=== PATIENT | female | born 1935 | race Caucasian/White ===

== ENCOUNTER 2017-06-04 18:57 | Inpatient (IN) | payer MEDICARE, MEDICAID ==
[2017-06-04] MEDS ORDERED: Nitroglycerin 2% 15 INCH/30 GM TUBE TOP STA (20:36)
[2017-06-04] MEDS ORDERED: Nitroglycerin 2% Ointment Foilpak UD TOP STA (20:38)
--- NOTE | 2017-06-04 20:54 | ED PDOC ---
HPI: SOB/CHF/COPD Time Seen by Provider: 06/04/17 19:19 Chief Complaint (Nursing): Palpitations Chief Complaint (Provider): Shortness of Breath History Per: Patient History/Exam Limitations: no limitations Onset/Duration Of Symptoms: Days (1 day ago) Current Symptoms Are (Timing): Still Present Additional Complaint(s): 81 y/o [place] female with a history of CHF, A-Fib, asthma, and dyslipidemia, brought in by EMS, presents to the ED complaining of shortness of breath, onset of 1 day. She reports of having orthopnea, dyspnea on exertion, as well as paroxysmal nocturnal dyspnea. She also noted that she has been compliance with her Lasix medication. She denies the use of any cigarettes or alcohol. Past Medical History Vital Signs: Last Vital Signs Temp 96.2 F L 06/05/17 00:19 Pulse 85 06/05/17 00:19 Resp 20 06/05/17 02:48 BP 124/79 06/05/17 00:19 Pulse Ox 95 06/05/17 00:19 - Medical History PMH: Anxiety, Arthritis, Atrial Fibrillation, CHF, COPD, Depression, Diabetes, Fractures (Left Hip displacement), HTN, Hypercholesterolemia Other PMH: Dyslipidemia, Pulmonary Hypertension, Hypothyroid - Surgical History Surgical History: Appendectomy - Family History Family History: States: Unknown Family Hx - Living Arrangements Living Arrangements: Alone - Social History Current smoker - smoking cessation education provided: No Alcohol: None Drugs: Denies - Home Medications Home Medications: Ambulatory Orders Medication Instructions Recorded Albuterol HFA [Ventolin HFA 90 2 in INH Q6 PRN 06/04/17 mcg/actuation (8 g)] Aspirin [Ecotrin] 81 mg PO DAILY 06/04/17 Atorvastatin [Lipitor] 10 mg PO DAILY 06/04/17 Docusate [Colace] 200 mg PO HS 06/04/17 Donepezil HCl [Aricept Odt] 5 mg PO DAILY 06/04/17 Esomeprazole Magnesium [Nexium] 40 mg PO DAILY 06/04/17 Fluticasone/Salmeterol 250/50 1 inh INH Q12 06/04/17 [Advair Diskus 250/50] Furosemide [Lasix] 40 mg PO DAILY 06/04/17 Levothyroxine [Synthroid] 100 mcg PO DAILY 06/04/17 Lipase/Protease/Amylase [Zenpep Dr 2 cap PO BID 06/04/17 3,000 Units Capsule] Losartan/Hydrochlorothiazide 1 tab PO DAILY 06/04/17 [Losartan-Hctz 50-12.5 mg Tab] Magnesium Oxide [Magox 400] 400 % PO DAILY 06/04/17 Meloxicam [Mobic] 7.5 mg PO DAILY 06/04/17 Metoprolol Succinate [Toprol XL] 25 mg PO DAILY 06/04/17 SITagliptin [Januvia] 50 mg PO DAILY 06/04/17 Sildenafil [Revatio] 20 mg PO TID 06/04/17 Spironolactone [Aldactone] 25 mg PO DAILY 06/04/17 Tolterodine [Detrol LA] 4 mg PO DAILY 06/04/17 - Allergies Allergies/Adverse Reactions: Allergies Allergy/AdvReac Type Severity Reaction Status Date / Time No Known Allergies Allergy Verified 06/04/17 19:02 Review of Systems ROS Statement: Except As Marked, All Systems Reviewed And Found Negative Cardiovascular: Positive for: Orthopnea, Paroxysmal Noc. 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 Negative for: Tenderness Back: Positive for: Normal Inspection Extremity: Positive for: Normal ROM, Other (no leg edema). Negative for: Pedal Edema, Deformity Neurologic/Psych: Positive for: Alert, Oriented. Negative for: Motor/Sensory Deficits - Laboratory Results Result Diagrams: 06/04/17 21:09 06/04/17 21:09 - ECG O2 Sat by Pulse Oximetry: 100 (RA) Pulse Ox Interpretation: Normal Medical Decision Making Medical Decision Making: Time: --19:55 Impression: --81 y/o female with an acute exacerbation of CHF Plan: --ECG --Labs --Troponin I --PTT --PT --Chest x-ray --Lasix 40mg IV --Nitroglycerin 1 ea TOP --Blood Culture --Heplock Insertion Reassess --20:49 Patient to be admitted to Dr. Moran for observation. Scribe Attestation: Documented by Jim Martino acting as a scribe for Justin Molina MD. Disposition - Clinical Impression Clinical Impression: Acute exacerbation of CHF (congestive heart failure) - Patient ED Disposition Is Patient to be Admitted: Yes Discussed With DrYenny: Richard Moran Doctor Will See Patient In The: Hospital - Disposition Disposition Time: 20:49 Condition: FAIR
[2017-06-04 21:18] LABS: BASO % 0.3 % (0.0-2.0); EOS # 0.1 K/uL (0.0-0.7); EOS % 1.2 % (0.0-4.0); HEMATOCRIT 45.8 % (34.0-47.0); LYMPH # 3.1 K/uL (1.0-4.3); MEAN CELL VOLUME 90.8 fl (81.0-99.0); MEAN CORPUSCULAR HEMOGLOBIN 29.1 pg (27.0-31.0); MEAN PLATELET VOLUME 9.9 fl (7.2-11.7); MONO # 0.8 K/uL (0.0-0.8); NEUT # 2.6 K/uL (1.8-7.0); NEUT % 39.5 % (50.0-75.0); NRBC % 0.3 % (0.0-0.0); RED CELL DISTRIBUTION WIDTH 13.9 % (11.5-14.5); WHITE BLOOD COUNT 6.5 K/uL (4.8-10.8)
[2017-06-04] MEDS ORDERED: Nitroglycerin 2% Ointment Foilpak UD TOP ONE (21:24)
[2017-06-04 21:26] LABS: CALCIUM 8.8 mg/dL (8.4-10.2); CARBON DIOXIDE 32 mmol/L (22-30); CHLORIDE 97 mmol/L (98-107); GFR AFRICAN-AMERICAN > 60; SODIUM 140 mmol/l (132-148)
[2017-06-04 21:33] LABS: ALB/GLOB RATIO 1.3 (1.0-2.1); ALKALINE PHOSPHATASE 75 U/L (38-126); ALT/SGPT 34 U/L (9-52); AST/SGOT 67 U/L (14-36); BILIRUBIN,TOTAL 1.1 mg/dl (0.2-1.3); BLOOD UREA NITROGEN 18 mg/dl (7-17); GLUCOSE,RANDOM 102 mg/dL (65-105); POTASSIUM 4.6 MMOL/L (3.6-5.0); TOTAL PROTEIN 7.5 G/DL (6.3-8.2)
[2017-06-04 21:54] LABS: PARTIAL THROMBOPLASTIN TIME 33.1 Seconds (25.6-37.1)
[2017-06-05] MEDS ORDERED: Albuterol HFA 90 mcg/actuation (8 g) INH PRN ×2 (02:40→07:15)
[2017-06-05] MEDS: Fluticasone-Salmeterol 250-50mcg Diskus INH SCH ×2 (08:58→22:01)
[2017-06-05] MEDS: HCTZ/Losartan 12.5/50 Tab PO SCH (08:59)
[2017-06-05] MEDS ORDERED: AMYLASE PO SCH (09:00)
[2017-06-05] MEDS ORDERED: LIPASE PO SCH (09:00)
[2017-06-05] MEDS: Enoxaparin 40 mg Syringe SC SCH (09:00)
[2017-06-05] MEDS ORDERED: Metoprolol Succinate 25 mg XL Tab PO SCH (09:00)
[2017-06-05] MEDS ORDERED: PROTEASE PO SCH (09:00)
[2017-06-05] MEDS: Amylase/Lipase/Protease 5,000 Units ECC PO SCH ×2 (09:01→16:55)
[2017-06-05] MEDS: Pantoprazole 40 mg EC Tab PO SCH (09:02)
[2017-06-05] MEDS: Levothyroxine 100 MCG TAB PO SCH (09:02)
[2017-06-05] MEDS: Magnesium Oxide 400 mg Tab UD PO SCH (16:53)
[2017-06-05] MEDS: DONEPEZIL HCL 5 MG PO SCH (16:53)
--- NOTE | 2017-06-05 18:10 | CP.PCM.CON ---
History of Present Illness - History of Present Illness History of Present Illness: Consultation for CHF exacerbation / tachycardia HPI: Dyana is a 81-year-old female with past medical history significant for diastolic CHF pulmonary hypertension nonischemic cardiomyopathy who was recently in [facility] over the weekend for a day for a bout of acute CHF exacerbation she was last hospitalized about a month ago with severe lower extremity edema fluid overload and heart failure with worsening sicca symptoms most likely attributable secondary to dietary noncompliance. OR she was subsequently discharged on Monday and [facility] when she noted she had a bout of tachycardia with severe shortness of breath she was getting dyspneic on exertion with minimal activity and therefore came back to the emergency room she was noted to have elevated BNP and was given IV Lasix with mild improvement in her symptoms according to mom she has been compliant with her medications and has been maintained on sildenafil therapy for pulmonary hypertension with significant improvement in her symptoms from her baseline at baseline she is in much functional class II/III dyspnea. Review of Systems - Review of Systems Systems not reviewed;Unavailable: Acuity of Condition - Constitutional Constitutional: As Per HPI - EENT Eyes: As Per HPI Ears: As Per HPI Nose/Mouth/Throat: As Per HPI - Breasts Breasts: As Per HPI - Cardiovascular Cardiovascular: As Per HPI, Chest Pain, Dyspnea - Respiratory Respiratory: As Per HPI - Gastrointestinal Gastrointestinal: As Per HPI - Genitourinary Genitourinary: As Per HPI - Reproductive: Female Reproductive:Female: As Per HPI - Musculoskeletal Musculoskeletal: As Per HPI - Integumentary Integumentary: As Per HPI - Neurological Neurological: As Per HPI - Psychiatric Psychiatric: As Per HPI - Endocrine Endocrine: As Per HPI - Hematologic/Lymphatic Hematologic: As Per HPI Past Patient History - Infectious Disease Hx of Infectious Diseases: None - Past Medical History & Family History Past Medical History?: Yes - Past Social History Alcohol: None Drugs: Denies - CARDIAC Hx Atrial Fibrillation: Yes Hx Congestive Heart Failure: Yes Hx Hypercholesterolemia: Yes Hx Hypertension: Yes - PULMONARY Hx Chronic Obstructive Pulmonary Disease (COPD): Yes - NEUROLOGICAL Hx Neurological Disorder: Yes HX Cerebrovascular Accident: Yes - HEENT Hx HEENT Problems: Yes Hx Blind: Yes (Right eye) Hx Glaucoma: Yes Other/Comment: Hx DEERING with hearing aids - RENAL Hx Chronic Kidney Disease: No - ENDOCRINE/METABOLIC Hx Endocrine Disorders: Yes Hx Diabetes Mellitus Type 2: Yes - HEMATOLOGICAL/ONCOLOGICAL Hx Blood Disorders: No Hx AIDS: No Hx Human Immunodeficiency Virus (HIV): No - INTEGUMENTARY Hx Dermatological Problems: No - MUSCULOSKELETAL/RHEUMATOLOGICAL Hx Arthritis: Yes Hx Fractures: Yes (Left Hip displacement) - GASTROINTESTINAL Hx Gastrointestinal Disorders: Yes Hx Gastroesophageal Reflux: Yes (Peptic Ulcer disease) - GENITOURINARY/GYNECOLOGICAL Hx Genitourinary Disorders: Yes Hx Incontinence: Yes - PSYCHIATRIC Hx Anxiety: Yes Hx Depression: Yes - SURGICAL HISTORY Hx Appendectomy: Yes - ANESTHESIA Hx Anesthesia: Yes Hx Anesthesia Reactions: No Hx Malignant Hyperthermia: No Meds Allergies/Adverse Reactions: Allergies Allergy/AdvReac Type Severity Reaction Status Date / Time No Known Allergies Allergy Verified 06/04/17 19:02 - Medications Medications: Current Medications Albuterol (Ventolin Hfa 90 Mcg/Actuation (8 G)) 2 puff INH Q6 PRN PRN Reason: sob Amylase (Pancrease 96910 U-5000 [id number] U) 10,000 unit PO BIDWM [facility] Last Admin: 06/05/17 16:55 Dose: 10,000 unit Aspirin (Ecotrin) 81 mg PO DAILY [facility] Last Admin: 06/05/17 08:59 Dose: 81 mg Atorvastatin Calcium (Lipitor) 10 mg PO DAILY [facility] Last Admin: 06/05/17 09:00 Dose: 10 mg Docusate Sodium (Colace) 200 mg PO [facility] Donepezil HCl (Aricept Odt) 5 mg PO DAILY [facility] Last Admin: 06/05/17 16:53 Dose: Not Given Enoxaparin Sodium (Lovenox) 40 mg SC DAILY [facility] PRN Reason: Protocol Last Admin: 06/05/17 09:00 Dose: 40 mg Famotidine (Pepcid) 20 mg IVP DAILY [facility] Last Admin: 06/05/17 09:02 Dose: Not Given Furosemide (Lasix) 40 mg IV DAILY [facility] HCTZ/Losartan Potassium (Hyzaar 12.5 Mg-50 Mg) 1 tab PO DAILY [facility] Last Admin: 06/05/17 08:59 Dose: 1 tab Levothyroxine Sodium (Synthroid) 100 mcg PO DAILY@0630 [facility] Last Admin: 06/05/17 09:02 Dose: 100 mcg Magnesium Oxide (Mag-Ox) 400 mg PO DAILY [facility] Last Admin: 06/05/17 16:53 Dose: Not Given Metoprolol Succinate (Toprol Xl) 25 mg PO DAILY [facility] Last Admin: 06/05/17 09:02 Dose: 25 mg Naproxen (Naprosyn Tab) 250 mg PO BID [facility] Last Admin: 06/05/17 16:55 Dose: 250 mg Ondansetron HCl (Zofran Inj) 4 mg IVP Q6 PRN PRN Reason: Nausea/Vomiting Last Admin: 06/05/17 09:12 Dose: 4 mg Pantoprazole Sodium (Protonix Ec Tab) 40 mg PO DAILY [facility] Last Admin: 06/05/17 09:02 Dose: 40 mg Fluticasone/Salmeterol (Advair Diskus 250/50) 1 puff INH Q12 [facility] Last Admin: 06/05/17 08:58 Dose: 1 puff Sitagliptin Phosphate (Januvia) 50 mg PO DAILY [facility] Last Admin: 06/05/17 08:59 Dose: 50 mg Spironolactone (Aldactone) 25 mg PO DAILY [facility] Last Admin: 06/05/17 08:58 Dose: 25 mg Tolterodine Tartrate (Detrol) 2 mg PO BID [facility] Last Admin: 06/05/17 16:55 Dose: 2 mg Physical Exam - Constitutional Appears: Well - Head Exam Head Exam: ATRAUMATIC, NORMAL INSPECTION, NORMOCEPHALIC - Eye Exam Eye Exam: EOMI, Normal appearance, PERRL Pupil Exam: NORMAL ACCOMODATION, PERRL - ENT Exam ENT Exam: Mucous Membranes Moist, Normal Exam - Neck Exam Neck exam: Positive for: Normal Inspection - Respiratory Exam Respiratory Exam: Clear to Auscultation Bilateral, Rales, NORMAL BREATHING PATTERN - Cardiovascular Exam Cardiovascular Exam: Irregular Rhythm, RRR, +S1, +S2, Systolic Murmur - GI/Abdominal Exam GI & Abdominal Exam: Normal Bowel Sounds, Soft. absent: Tenderness - Extremities Exam Extremities exam: Positive for: normal inspection - Back Exam Back exam: NORMAL INSPECTION - Neurological Exam Neurological exam: Alert, CN II-XII Intact, Normal Gait, Oriented x3, Reflexes Normal - Psychiatric Exam Psychiatric exam: Normal Affect, Normal Mood - Skin Skin Exam: Dry, Intact, Normal Color, Warm Results - Vital Signs Recent Vital Signs: Last Vital Signs Temp 98.3 F 06/05/17 16:23 Pulse 107 H 06/05/17 16:23 Resp 18 12/18/17 16:23 BP 108/71 06/05/17 16:23 Pulse Ox 96 06/05/17 16:23 - Labs Result Diagrams: 06/06/17 04:25 06/06/17 04:25 Labs: Laboratory Results - last 24 hr 06/04/17 06/04/17 06/04/17 19:22 21:09 21:09 WBC 6.5 RBC 5.05 Hgb 14.7 Hct 45.8 MCV 90.8 MCH 29.1 MCHC 32.0 L RDW 13.9 Plt Count 166 MPV 9.9 Neut % (Auto) 39.5 L Lymph % (Auto) 47.0 H [place] % (Auto) 12.0 H Eos % (Auto) 1.2 Baso % (Auto) 0.3 Neut # 2.6 Lymph # 3.1 [place] # 0.8 Eos # 0.1 Baso # 0.0 PT INR APTT Sodium 140 Potassium 4.6 Chloride 97 L Carbon Dioxide 32 H Anion Gap 16 BUN 18 H Creatinine 0.7 Est GFR ( Amer) > 60 Est GFR (Non-Af Amer) > 60 POC Glucose (mg/dL) 122 H Random Glucose 102 Calcium 8.8 Total Bilirubin 1.1 AST 67 H ALT 34 Alkaline Phosphatase 75 Troponin I 0.0220 NT-Pro-B Natriuret Pep 2270 H Total Protein 7.5 Albumin 4.3 Globulin 3.3 Albumin/Globulin Ratio 1.3 06/04/17 06/05/17 06/05/17 21:09 00:36 04:20 WBC RBC Hgb Hct MCV MCH MCHC RDW Plt Count MPV Neut % (Auto) Lymph % (Auto) [place] % (Auto) Eos % (Auto) Baso % (Auto) Neut # Lymph # [place] # Eos # Baso # PT 12.7 INR 1.1 APTT 33.1 Sodium Potassium Chloride Carbon Dioxide Anion Gap BUN Creatinine Est GFR ( Amer) Est GFR (Non-Af Amer) POC Glucose (mg/dL) 165 H Random Glucose Calcium Total Bilirubin AST ALT Alkaline Phosphatase Troponin I 0.0170 NT-Pro-B Natriuret Pep Total Protein Albumin Globulin Albumin/Globulin Ratio 06/05/17 06/05/17 06/05/17 05:37 10:53 12:39 WBC RBC Hgb Hct MCV MCH MCHC RDW Plt Count MPV Neut % (Auto) Lymph % (Auto) [place] % (Auto) Eos % (Auto) Baso % (Auto) Neut # Lymph # [place] # Eos # Baso # PT INR APTT Sodium Potassium Chloride Carbon Dioxide Anion Gap BUN Creatinine Est GFR ( Amer) Est GFR (Non-Af Amer) POC Glucose (mg/dL) 118 H 137 H Random Glucose Calcium Total Bilirubin AST ALT Alkaline Phosphatase Troponin I 0.0230 NT-Pro-B Natriuret Pep Total Protein Albumin Globulin Albumin/Globulin Ratio Assessment & Plan (1) Afib Assessment and Plan: chg metoprolol to 25mg po bid will consider adding digoxin based on HR response and BP Status: Ruled-out (2) Pulmonary HTN Assessment and Plan: cont with sildenafil therapy Status: Acute (3) Pedal edema Status: Acute (4) Acute exacerbation of CHF (congestive heart failure) Assessment and Plan: cont with lasix 40mg IV bid add digoxin Status: Acute
[2017-06-06 05:44] LABS: HEMATOCRIT 43.4 % (34.0-47.0); MEAN CELL VOLUME 90.7 fl (81.0-99.0); MEAN CORPUSCULAR HEMOGLOBIN 28.9 pg (27.0-31.0); MEAN CORPUSCULAR HGB CONC 31.9 g/dL (33.0-37.0); RED CELL DISTRIBUTION WIDTH 13.7 % (11.5-14.5); WHITE BLOOD COUNT 6.4 K/uL (4.8-10.8)
[2017-06-06] MEDS: Levothyroxine 100 MCG TAB PO SCH (05:50)
[2017-06-06 06:09] LABS: ALB/GLOB RATIO 1.5 (1.0-2.1); BILIRUBIN,TOTAL 0.6 mg/dl (0.2-1.3); CALCIUM 8.6 mg/dL (8.4-10.2); POTASSIUM 2.8 MMOL/L (3.6-5.0); TOTAL PROTEIN 6.1 G/DL (6.3-8.2)
[2017-06-06] MEDS ORDERED: Potassium Chloride 20 mEq ER Tab PO ONE (06:54)
[2017-06-06] MEDS: Fluticasone-Salmeterol 250-50mcg Diskus INH SCH ×2 (08:34→21:57)
[2017-06-06] MEDS: DONEPEZIL HCL 5 MG PO SCH (08:35)
[2017-06-06] MEDS: Amylase/Lipase/Protease 5,000 Units ECC PO SCH ×2 (08:35→16:02)
[2017-06-06] MEDS: Potassium CL 10 MEQ/50 ML 50 ML IVPB SCH ×2 (08:36→12:19)
[2017-06-06] MEDS: Pantoprazole 40 mg EC Tab PO SCH (08:36)
[2017-06-06] MEDS: HCTZ/Losartan 12.5/50 Tab PO SCH (08:36)
[2017-06-06] MEDS: Enoxaparin 40 mg Syringe SC SCH (08:38)
[2017-06-06] MEDS: Magnesium Oxide 400 mg Tab UD PO SCH (08:38)
--- NOTE | 2017-06-06 08:44 | HP ---
CHIEF COMPLAINT: Palpitation and shortness of breath. HISTORY OF PRESENT ILLNESS: This is a 81-year-old female, known case of congestive heart failure, COPD, morbid obesity, atrial fibrillation, arthritis, anxiety, diabetes, hypertension, elevated cholesterol, who was having palpitation and shortness of breath, so the patient was brought to the emergency room and was admitted for further management. PAST MEDICAL HISTORY: Significant for hypertension, elevated cholesterol, CHF, atrial fibrillation, COPD, diabetes, depression, anxiety, arthritis and morbid obesity. PAST SURGICAL HISTORY: Remarkable for appendix removed. PERSONAL HISTORY: The patient is currently nonsmoker, nondrinker. No substance abuse. MEDICATIONS: The patient is on multiple medications, which is as per reconciliation sheet, which was reviewed and ordered. ALLERGIES: THE PATIENT IS NOT ALLERGIC TO ANY MEDICATION. FAMILY HISTORY: Noncontributory. REVIEW OF SYSTEMS: Positive for palpitation and shortness of breath. Review of systems otherwise is negative for headache, dizziness, syncope, loss of consciousness, chest pain, nausea, vomiting, diarrhea, constipation, any new joint or extremity pain. Review of systems of all other organ system is unremarkable except generalized malaise and weakness and fatigue. PHYSICAL EXAMINATION: GENERAL: Well-built, well-nourished morbidly obese 81-year-old female, in no acute distress, but chronically sick looking. VITAL SIGNS: Temperature 99.4, pulse 111, respirations 20, blood pressure 117/77. HEENT: Pupils reacting to light. No JVD. No thyromegaly. No lymphadenopathy. No nystagmus. Normocephalic, atraumatic skull. HEART: S1 and S2. Normal and regular. No significant murmur, gallop or rub is heard. LUNGS: Shows good bilateral air exchange. No rales or rhonchi. ABDOMEN: Soft, nontender. No organomegaly. No fluid. Bowel sounds are plus. EXTREMITIES: No edema. No calf swelling. No tenderness. No acute ischemia. CENTRAL NERVOUS SYSTEM: Essentially unchanged. DIAGNOSTIC DATA: Available diagnostic data reviewed. Telemetry monitoring does not reveal significant arrhythmias. WBC 6.5, hemoglobin 14.7, hematocrit 45.8, platelets 176. Sodium 140, potassium 4.6, chloride 97, bicarb 32, BUN 18, creatinine 0.7. SMA 12 is unremarkable. ProBNP level is 2270. Accu-Cheks are 165, 118 and 137. EKG does not reveal any acute ST-T changes. Chest x-ray consistent with congestive changes. ADMITTING IMPRESSION: Decompensated congestive heart failure, hypertension, elevated cholesterol, chronic obstructive pulmonary disease, arthritis, atrial fibrillation. PLAN: As ordered. Case and plan discussed with the patient. Richard Moran MD
--- NOTE | 2017-06-06 09:10 | CP.PCM.PN ---
Subjective - Date & Time of Evaluation Date of Evaluation: 06/06/17 Time of Evaluation: 08:00 - Subjective Subjective: Patient seen and examined wit attending bedside. Feeling better. denies SOB, chest pain, fever, nausea, vomiting. Stooling normal. reports less urination yesterday. Objective - Vital Signs/Intake and Output Vital Signs (last 24 hours): Temp Pulse Resp BP Pulse Ox 97.9 F 72 20 106/73 96 06/06/17 08:08 06/06/17 08:38 06/06/17 08:08 06/06/17 08:38 06/06/17 08:08 - Medications Medications: Current Medications Albuterol (Ventolin Hfa 90 Mcg/Actuation (8 G)) 2 puff INH Q6 PRN PRN Reason: sob Amylase (Pancrease 52090 U-5000 U-[id number] U) 10,000 unit PO BIDWM [facility] Last Admin: 06/06/17 08:35 Dose: 10,000 unit Aspirin (Ecotrin) 81 mg PO DAILY [facility] Last Admin: 06/06/17 08:38 Dose: 81 mg Atorvastatin Calcium (Lipitor) 10 mg PO DAILY [facility] Last Admin: 06/05/17 09:00 Dose: 10 mg Docusate Sodium (Colace) 200 mg PO HS [facility] Last Admin: 06/05/17 21:52 Dose: 200 mg Donepezil HCl (Aricept Odt) 5 mg PO DAILY [facility] Last Admin: 06/06/17 08:35 Dose: 5 mg Enoxaparin Sodium (Lovenox) 40 mg SC DAILY [facility] PRN Reason: Protocol Last Admin: 06/06/17 08:38 Dose: 40 mg Famotidine (Pepcid) 20 mg IVP DAILY [facility] Last Admin: 06/06/17 08:41 Dose: 20 mg Furosemide (Lasix) 40 mg IV BID [facility] Last Admin: 06/05/17 19:22 Dose: Not Given HCTZ/Losartan Potassium (Hyzaar 12.5 Mg-50 Mg) 1 tab PO DAILY [facility] Last Admin: 06/06/17 08:36 Dose: 1 tab Potassium Chloride (Potassium Cl 10meq/50ml Sterile Water) 50 mls @ 50 mls/hr IVPB Q1 [facility] Stop: 06/06/17 10:59 Last Admin: 06/06/17 08:36 Dose: 50 mls/hr Levothyroxine Sodium (Synthroid) 100 mcg PO DAILY@0630 [facility] Last Admin: 06/06/17 05:50 Dose: 100 mcg Magnesium Oxide (Mag-Ox) 400 mg PO DAILY [facility] Last Admin: 06/06/17 08:38 Dose: 400 mg Metoprolol Tartrate (Lopressor) 25 mg PO Q12 [facility] Last Admin: 06/06/17 08:38 Dose: 25 mg Naproxen (Naprosyn Tab) 250 mg PO BID [facility] Last Admin: 06/06/17 08:36 Dose: 250 mg Ondansetron HCl (Zofran Inj) 4 mg IVP Q6 PRN PRN Reason: Nausea/Vomiting Last Admin: 06/05/17 09:12 Dose: 4 mg Pantoprazole Sodium (Protonix Ec Tab) 40 mg PO DAILY [facility] Last Admin: 06/06/17 08:36 Dose: 40 mg Fluticasone/Salmeterol (Advair Diskus 250/50) 1 puff INH Q12 [facility] Last Admin: 06/06/17 08:34 Dose: 1 puff Sitagliptin Phosphate (Januvia) 50 mg PO DAILY [facility] Last Admin: 06/06/17 08:35 Dose: 50 mg Spironolactone (Aldactone) 25 mg PO DAILY [facility] Last Admin: 06/06/17 08:35 Dose: 25 mg Tolterodine Tartrate (Detrol) 2 mg PO BID [facility] Last Admin: 06/06/17 08:35 Dose: 2 mg - Labs Labs: 06/06/17 04:25 06/06/17 04:25 PT 12.7 Seconds (9.8-13.1) 06/04/17 21:09 INR 1.1 (0.9-1.2) 06/04/17 21:09 APTT 33.1 Seconds (25.6-37.1) 06/04/17 21:09 - Constitutional Appears: Non-toxic, No Acute Distress - Head Exam Head Exam: ATRAUMATIC, NORMOCEPHALIC - Eye Exam Eye Exam: Normal appearance - Neck Exam Neck Exam: Full ROM - Respiratory Exam Respiratory Exam: Clear to Ausculation Bilateral. absent: Rales, Rhonchi, Wheezes - Cardiovascular Exam Cardiovascular Exam: REGULAR RHYTHM, +S1, +S2 - GI/Abdominal Exam GI & Abdominal Exam: Soft, Normal Bowel Sounds. absent: Tenderness - Extremities Exam Extremities Exam: Full ROM. absent: Pedal Edema - Neurological Exam Neurological Exam: Alert, Awake, Oriented x3 - Psychiatric Exam Psychiatric exam: Normal Affect - Skin Skin Exam: Intact Assessment and Plan - Assessment and Plan (Free Text) Plan: Assessment/Plan 81 yo, f, PMx/o CHF, COPD, morbid obesity, A fib, DM, HTN admitted for CHF exacerbation. 1) Diastolic CHF exacerbation -improving -cardiac consult appreciated 2) Hypokalemia secondary to lasix administration -hold lasix -aldactone -Kcl PO 60 mg -Kcl Iv 40 meq -f/u cmp tomorrow 3) A fib Shell Sorter consult appreciated:changed metoprolol 25 mog bid. will consider adding digoxin 4) COPD Duoneb 5) DM Continue januvia Accucheck ACHS 6) DVT Prophylaxis -Lovenox 40 mg sc daily
--- NOTE | 2017-06-06 10:16 | PQF GENQUE ---
This form is a permanent part of the medical record 06/06/17 Dr Walters, Please specify the underlying cause/ type of pulmonary hypertension in your progress notes. Admitted with SOB. Noted to have elevated BNP and given Lasix IV. Documentation of a history of Diastolic CHF, Pulmonary HTN, Non-ischemic Cardiomyopathy. Clarification of your documentation is requested to better reflect the severity of illness and intensity of treatment of your patient. Indicators present [] Specify: [] [] Specify: [] [] Specify: [] [] Specify: [] Location in the medical record that reflects the above clinical findings: [] Treatment Provided: [] PHYSICIAN'S RESPONSE Based on your medical judgment of the clinical indicators outlined above please clarify the following: [] Practitioner response [] If unable to determine, please check the box, sign and date. Present On Admission (POA) Indicator: [] Present at the time of admission [] Not present at the time of admission [] Clinically Undetermined In responding to this query, please exercise your independent professional judgment. The fact that a question is asked does not imply that any particular answer is desired or expected. Thank you for your clarification on this documentation. If you have any questions please call:extension [phone] * Thank you, Kathy Jose RN CDMP MTDD
--- NOTE | 2017-06-06 14:19 | IP.NPCORE ---
Heart Failure Core Measure - Heart Failure Ejection Fraction: 40 % or Greater
[2017-06-06] MEDS ORDERED: Potassium Chloride 20 mEq/15 ml LIQ UD PO ONE (15:00)
--- NOTE | 2017-06-07 00:35 | CP.PCM.PN ---
Subjective - Date & Time of Evaluation Date of Evaluation: 06/06/17 Time of Evaluation: 09:30 - Subjective Subjective: SOB and LE edema improving still tachycardic Objective - Vital Signs/Intake and Output Vital Signs (last 24 hours): Temp Pulse Resp BP Pulse Ox 98.1 F 95 H 18 95/68 L 94 L 06/06/17 20:01 06/06/17 21:54 06/06/17 20:01 06/06/17 21:54 06/06/17 20:01 Intake and Output: 06/06/17 06/07/17 18:59 06:59 Intake Total 600 Balance 600 - Medications Medications: Current Medications Albuterol (Ventolin Hfa 90 Mcg/Actuation (8 G)) 2 puff INH Q6 PRN PRN Reason: sob Amylase (Pancrease 66140 U-5000 U-93783 U) 10,000 unit PO BIDWM [facility] Last Admin: 06/06/17 16:02 Dose: 10,000 unit Aspirin (Ecotrin) 81 mg PO DAILY [facility] Last Admin: 06/06/17 08:38 Dose: 81 mg Atorvastatin Calcium (Lipitor) 10 mg PO DAILY [facility] Last Admin: 06/06/17 12:16 Dose: 10 mg Docusate Sodium (Colace) 200 mg PO HS [facility] Last Admin: 06/06/17 21:51 Dose: 200 mg Donepezil HCl (Aricept Odt) 5 mg PO DAILY [facility] Last Admin: 06/06/17 08:35 Dose: 5 mg Enoxaparin Sodium (Lovenox) 40 mg SC DAILY [facility] PRN Reason: Protocol Last Admin: 06/06/17 08:38 Dose: 40 mg Famotidine (Pepcid) 20 mg IVP DAILY [facility] Last Admin: 06/06/17 08:41 Dose: 20 mg Furosemide (Lasix) 40 mg IV BID [facility] Last Admin: 06/06/17 15:59 Dose: 40 mg HCTZ/Losartan Potassium (Hyzaar 12.5 Mg-50 Mg) 1 tab PO DAILY [facility] Last Admin: 06/06/17 08:36 Dose: 1 tab Levothyroxine Sodium (Synthroid) 100 mcg PO DAILY@0630 [facility] Last Admin: 06/06/17 05:50 Dose: 100 mcg Magnesium Oxide (Mag-Ox) 400 mg PO DAILY [facility] Last Admin: 06/06/17 08:38 Dose: 400 mg Metoprolol Tartrate (Lopressor) 25 mg PO Q12 [facility] Last Admin: 06/06/17 21:54 Dose: Not Given Naproxen (Naprosyn Tab) 250 mg PO BID [facility] Last Admin: 06/06/17 16:02 Dose: 250 mg Ondansetron HCl (Zofran Inj) 4 mg IVP Q6 PRN PRN Reason: Nausea/Vomiting Last Admin: 06/05/17 09:12 Dose: 4 mg Pantoprazole Sodium (Protonix Ec Tab) 40 mg PO DAILY [facility] Last Admin: 06/06/17 08:36 Dose: 40 mg Potassium Chloride (K-Dur 20 Meq Er Tab) 20 meq PO DAILY [facility] Rivastigmine (Exelon 9.5 Mg/24 Hr Patch) 1 patch TD DAILY [facility] Last Admin: 06/06/17 15:58 Dose: 1 patch Fluticasone/Salmeterol (Advair Diskus 250/50) 1 puff INH Q12 [facility] Last Admin: 06/06/17 21:57 Dose: 1 puff Sitagliptin Phosphate (Januvia) 50 mg PO DAILY [facility] Last Admin: 06/06/17 08:35 Dose: 50 mg Tolterodine Tartrate (Detrol) 2 mg PO BID [facility] Last Admin: 06/06/17 16:06 Dose: Not Given - Labs Labs: 06/06/17 04:25 06/06/17 04:25 PT 12.7 Seconds (9.8-13.1) 06/04/17 21:09 INR 1.1 (0.9-1.2) 06/04/17 21:09 APTT 33.1 Seconds (25.6-37.1) 06/04/17 21:09 - Constitutional Appears: Well - Head Exam Head Exam: ATRAUMATIC, NORMAL INSPECTION, NORMOCEPHALIC - Eye Exam Eye Exam: EOMI, PERRL - ENT Exam ENT Exam: Mucous Membranes Moist - Neck Exam Neck Exam: Full ROM, Normal Inspection - Respiratory Exam Respiratory Exam: Decreased Breath Sounds, Rales - Cardiovascular Exam Cardiovascular Exam: Irregular Rhythm, RRR, +S1, +S2, Murmur - GI/Abdominal Exam GI & Abdominal Exam: Soft, Normal Bowel Sounds - Extremities Exam Extremities Exam: Pedal Edema - Back Exam Back Exam: NORMAL INSPECTION - Neurological Exam Neurological Exam: Alert, Awake, CN II-XII Intact, Oriented x3 - Psychiatric Exam Psychiatric exam: Normal Affect, Normal Mood - Skin Skin Exam: Intact, Normal Color, Warm Assessment and Plan (1) Afib Status: Ruled-out (2) Pulmonary HTN Status: Acute (3) Pedal edema Status: Acute (4) Acute exacerbation of CHF (congestive heart failure) Status: Acute
[2017-06-07 05:33] LABS: HEMATOCRIT 45.1 % (34.0-47.0); MEAN CELL VOLUME 91.1 fl (81.0-99.0); MEAN CORPUSCULAR HEMOGLOBIN 28.9 pg (27.0-31.0); MEAN CORPUSCULAR HGB CONC 31.7 g/dL (33.0-37.0); RED CELL DISTRIBUTION WIDTH 13.9 % (11.5-14.5); WHITE BLOOD COUNT 6.7 K/uL (4.8-10.8)
[2017-06-07 05:59] LABS: ALB/GLOB RATIO 1.3 (1.0-2.1); BILIRUBIN,TOTAL 0.6 mg/dl (0.2-1.3); CALCIUM 8.6 mg/dL (8.4-10.2); POTASSIUM 3.8 MMOL/L (3.6-5.0); TOTAL PROTEIN 6.1 G/DL (6.3-8.2)
[2017-06-07] MEDS: Levothyroxine 100 MCG TAB PO SCH (07:30)
[2017-06-07] MEDS: Amylase/Lipase/Protease 5,000 Units ECC PO SCH ×2 (09:18→16:44)
[2017-06-07] MEDS: Pantoprazole 40 mg EC Tab PO SCH (09:18)
[2017-06-07] MEDS: Enoxaparin 40 mg Syringe SC SCH (09:19)
[2017-06-07] MEDS: Magnesium Oxide 400 mg Tab UD PO SCH (09:19)
--- NOTE | 2017-06-07 09:19 | CP.PCM.PN ---
Subjective - Date & Time of Evaluation Date of Evaluation: 06/07/17 Time of Evaluation: 07:10 - Subjective Subjective: Patient seen and examined wit attending Dr Luisa pate. Feeling better. denies SOB, chest pain, fever, nausea, vomiting. Stooling normal. reports less urination yesterday .no overnight events. will do bladder scan to r/o urine retention Objective - Vital Signs/Intake and Output Vital Signs (last 24 hours): Temp Pulse Resp BP Pulse Ox 97.4 F L 92 H 20 97/61 L 95 06/07/17 08:29 06/07/17 08:29 06/07/17 08:29 06/07/17 08:29 06/07/17 08:29 - Medications Medications: Current Medications Albuterol (Ventolin Hfa 90 Mcg/Actuation (8 G)) 2 puff INH Q6 PRN PRN Reason: sob Amylase (Pancrease 41308 U-5000 [id number] U) 10,000 unit PO BIDWM [facility] Last Admin: 06/07/17 09:18 Dose: 10,000 unit Aspirin (Ecotrin) 81 mg PO DAILY [facility] Last Admin: 06/06/17 08:38 Dose: 81 mg Atorvastatin Calcium (Lipitor) 10 mg PO DAILY [facility] Last Admin: 06/06/17 12:16 Dose: 10 mg Docusate Sodium (Colace) 200 mg PO HS [facility] Last Admin: 06/06/17 21:51 Dose: 200 mg Donepezil HCl (Aricept Odt) 5 mg PO DAILY [facility] Last Admin: 06/06/17 08:35 Dose: 5 mg Enoxaparin Sodium (Lovenox) 40 mg SC DAILY [facility] PRN Reason: Protocol Last Admin: 06/07/17 09:19 Dose: 40 mg Furosemide (Lasix) 40 mg IV BID [facility] Last Admin: 06/06/17 15:59 Dose: 40 mg HCTZ/Losartan Potassium (Hyzaar 12.5 Mg-50 Mg) 1 tab PO DAILY [facility] Last Admin: 06/06/17 08:36 Dose: 1 tab Levothyroxine Sodium (Synthroid) 100 mcg PO DAILY@0630 [facility] Last Admin: 06/07/17 07:30 Dose: Not Given Magnesium Oxide (Mag-Ox) 400 mg PO DAILY [facility] Last Admin: 06/07/17 09:19 Dose: 400 mg Metoprolol Tartrate (Lopressor) 25 mg PO Q12 [facility] Last Admin: 06/06/17 21:54 Dose: Not Given Naproxen (Naprosyn Tab) 250 mg PO BID [facility] Last Admin: 06/06/17 16:02 Dose: 250 mg Ondansetron HCl (Zofran Inj) 4 mg IVP Q6 PRN PRN Reason: Nausea/Vomiting Last Admin: 06/05/17 09:12 Dose: 4 mg Pantoprazole Sodium (Protonix Ec Tab) 40 mg PO DAILY [facility] Last Admin: 06/07/17 09:18 Dose: 40 mg Potassium Chloride (K-Dur 20 Meq Er Tab) 20 meq PO DAILY [facility] Rivastigmine (Exelon 9.5 Mg/24 Hr Patch) 1 patch TD DAILY [facility] Last Admin: 06/07/17 09:18 Dose: 1 patch Fluticasone/Salmeterol (Advair Diskus 250/50) 1 puff INH Q12 [facility] Last Admin: 06/06/17 21:57 Dose: 1 puff Sitagliptin Phosphate (Januvia) 50 mg PO DAILY [facility] Last Admin: 06/06/17 08:35 Dose: 50 mg Tolterodine Tartrate (Detrol) 2 mg PO BID [facility] Last Admin: 06/06/17 16:06 Dose: Not Given - Labs Labs: 06/07/17 04:30 06/07/17 04:30 PT 12.7 Seconds (9.8-13.1) 06/04/17 21:09 INR 1.1 (0.9-1.2) 06/04/17 21:09 APTT 33.1 Seconds (25.6-37.1) 06/04/17 21:09 - Constitutional Appears: Well, Non-toxic, No Acute Distress - Head Exam Head Exam: ATRAUMATIC, NORMOCEPHALIC - Eye Exam Eye Exam: Normal appearance - ENT Exam ENT Exam: Normal Exam - Neck Exam Neck Exam: Normal Inspection - Respiratory Exam Respiratory Exam: Clear to Ausculation Bilateral. absent: Rales, Rhonchi, Wheezes - Cardiovascular Exam Cardiovascular Exam: REGULAR RHYTHM, +S1, +S2 - GI/Abdominal Exam GI & Abdominal Exam: Soft, Normal Bowel Sounds. absent: Tenderness - Extremities Exam Extremities Exam: Normal Capillary Refill, Normal Inspection. absent: Pedal Edema - Neurological Exam Neurological Exam: Alert, Awake, Oriented x3 - Psychiatric Exam Psychiatric exam: Normal Mood - Skin Skin Exam: Intact Assessment and Plan - Assessment and Plan (Free Text) Plan: 81 yo, f, PMx/o CHF, COPD, morbid obesity, A fib, DM, HTN admitted for CHF exacerbation. 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 will consider adding digoxin 4) COPD Duoneb 5) DM Continue januvia Accucheck ACHS 6) DVT Prophylaxis -Lovenox 40 mg sc daily
[2017-06-07] MEDS: DONEPEZIL HCL 5 MG PO SCH (09:21)
[2017-06-07] MEDS: HCTZ/Losartan 12.5/50 Tab PO SCH (09:21)
[2017-06-07] MEDS: Potassium Chloride 20 mEq ER Tab PO SCH (09:23)
[2017-06-07] MEDS: Fluticasone-Salmeterol 250-50mcg Diskus INH SCH ×2 (09:26→22:51)
--- NOTE | 2017-06-07 09:41 | CARD ---
APPROVED REPORT EXAM: Two-dimensional and M-mode echocardiogram with Doppler and color Doppler. Other Information Quality : AverageRhythm : Atrial Fibrillation INDICATION Congestive Heart Failure 2D DIMENSIONS IVSd0.91 (0.7-1.1cm)LVDd3.85 (3.9-5.9cm) LVOT Diameter2.03 (1.8-2.4cm)PWd0.78 (0.7-1.1cm) IVSs1.34 (0.8-1.2cm)LVDs3.44 (2.5-4.0cm) FS (%) 10.8 %PWs1.30 (0.8-1.2cm) M-Mode DIMENSIONS Left Atrium (MM)4.38 (2.5-4.0cm)IVSd1.47 (0.7-1.1cm) Aortic Root2.59 (2.2-3.7cm)LVDd3.32 (4.0-5.6cm) Aortic Cusp Exc.1.71 (1.5-2.0cm)PWd0.94 (0.7-1.1cm) IVSs1.47 cmFS (%) 6 % LVDs3.12 (2.0-3.8cm)PWs1.53 cm Mitral Valve E/A ratio0.0 TDI E/Lateral E'0.0E/Medial E'0.0 Tricuspid Valve TR Peak [id number] [id number] Peak Gr.26mmHg [id number] LEFT VENTRICLE The left ventricle is normal size. There is normal left ventricular wall thickness. The left ventricular function is normal. The left ventricular ejection fraction is 50-55% There is normal LV segmental wall motion. Not analyzed pt in atrial fibrillation No left ventricle thrombus noted on this study. There is no ventricular septal defect visualized. There is no left ventricular aneurysm. There is no mass noted in the left ventricle. RIGHT VENTRICLE The right ventricle is normal size. There is normal right ventricular wall thickness. The right ventricular systolic function is normal. ATRIA The left atrial is mildly enlarged The right atrium size is normal. The interatrial septum is intact with no evidence for an atrial septal defect. AORTIC VALVE The aortic valve is normal in structure. No aortic regurgitation is present. There is no aortic valvular stenosis. There is no aortic valvular vegetation. MITRAL VALVE The mitral valve is normal in structure. There is no evidence of mitral valve prolapse. There is no mitral valve stenosis. There is no mitral valve regurgitation noted. TRICUSPID VALVE The tricuspid valve is normal in structure. There is no tricuspid valve regurgitation noted. There is no tricuspid valve prolapse or vegetation. There is no tricuspid valve stenosis. PULMONIC VALVE The pulmonary valve is normal in structure. There is no pulmonic valvular regurgitation. There is no pulmonic valvular stenosis. GREAT VESSELS The aortic root is normal in size. The ascending aorta is normal in size. The IVC is normal in size and collapses >50% with inspiration. PERICARDIAL EFFUSION The pericardium appears normal. There is no pleural effusion. <Conclusion> Normal LV Systolic Function Mild Left Atrial Enlargement Pt in atrial fibrillation
--- NOTE | 2017-06-07 11:32 | PQF GENQUE ---
This form is a permanent part of the medical record 06/07/17 Dr. Moran, Would you please clarify if there is an associated diagnosis or not to go along with the following lab findings. Patient with a history of pulmonary HTN, non-ischemic cardiomyopathy and diastolic CHF is admitted for a CHF exacerbation. Treated with IV Lasix. BUN 18->34, Creatinine 0.7-> 2.4, GFR >60 down to 19. Aldactone and Lasix d/c. Clarification of your documentation is requested to better reflect the severity of illness and intensity of treatment of your patient. Indicators present [] Specify: [] [] Specify: [] [] Specify: [] [] Specify: [] Location in the medical record that reflects the above clinical findings: [] Treatment Provided: [] PHYSICIAN'S RESPONSE Based on your medical judgment of the clinical indicators outlined above please clarify the following: [] Practitioner response [] If unable to determine, please check the box, sign and date. Present On Admission (POA) Indicator: [] Present at the time of admission [] Not present at the time of admission [] Clinically Undetermined In responding to this query, please exercise your independent professional judgment. The fact that a question is asked does not imply that any particular answer is desired or expected. Thank you for your clarification on this documentation. If you have any questions please call:ext [phone] * Thank you, Kathy Jose RN [facility]
--- NOTE | 2017-06-07 11:42 | PQF GENQUE ---
This form is a permanent part of the medical record 06/07/17 Dr Moran, Documentation of a history of Atrial Fibrillation. Medication includes Metoprolol. Please clarify the type of atrial fibrillation: >> Chronic >> Paroxysmal >> Permanent >> Persistent >> Other (please specify type) >> Clinically unable to determine >> Unknown Clarification of your documentation is requested to better reflect the severity of illness and intensity of treatment of your patient. Indicators present [] Specify: [] [] Specify: [] [] Specify: [] [] Specify: [] Location in the medical record that reflects the above clinical findings: [] Treatment Provided: [] PHYSICIAN'S RESPONSE Based on your medical judgment of the clinical indicators outlined above please clarify the following: [] Practitioner response [] If unable to determine, please check the box, sign and date. Present On Admission (POA) Indicator: [] Present at the time of admission [] Not present at the time of admission [] Clinically Undetermined In responding to this query, please exercise your independent professional judgment. The fact that a question is asked does not imply that any particular answer is desired or expected. Thank you for your clarification on this documentation. If you have any questions please call:extension [phone] * Thank you, Kathy Jose RN [facility]
[2017-06-07] MEDS ORDERED: Digoxin 125 mcg (0.125 mg) Tab PO ONE (17:45)
--- NOTE | 2017-06-07 17:49 | CP.PCM.PN ---
Subjective - Date & Time of Evaluation Date of Evaluation: 06/07/17 Time of Evaluation: 17:47 - Subjective Subjective: Creatinine worsened sob stable HR stable Objective - Vital Signs/Intake and Output Vital Signs (last 24 hours): Temp Pulse Resp BP Pulse Ox 98 F 102 H 16 116/80 96 06/07/17 16:19 06/07/17 16:19 06/07/17 16:19 06/07/17 16:43 06/07/17 16:19 - Medications Medications: Current Medications Albuterol (Ventolin Hfa 90 Mcg/Actuation (8 G)) 2 puff INH Q6 PRN PRN Reason: sob Amylase (Pancrease 31519 U-5000 U-18515 U) 10,000 unit PO BIDWM [facility] Last Admin: 06/07/17 16:44 Dose: Not Given Aspirin (Ecotrin) 81 mg PO DAILY [facility] Last Admin: 06/07/17 09:21 Dose: 81 mg Atorvastatin Calcium (Lipitor) 10 mg PO DAILY [facility] Last Admin: 06/07/17 16:47 Dose: Not Given Docusate Sodium (Colace) 200 mg PO HS [facility] Last Admin: 06/06/17 21:51 Dose: 200 mg Donepezil HCl (Aricept Odt) 5 mg PO DAILY [facility] Last Admin: 06/07/17 09:21 Dose: 5 mg Enoxaparin Sodium (Lovenox) 40 mg SC DAILY [facility] PRN Reason: Protocol Last Admin: 06/07/17 09:19 Dose: 40 mg Furosemide (Lasix) 40 mg IV BID [facility] Last Admin: 06/07/17 16:43 Dose: 40 mg Home Med (Patient's Own Medication) 20 unit PO TID [facility] Levothyroxine Sodium (Synthroid) 100 mcg PO DAILY@0630 [facility] Last Admin: 06/07/17 07:30 Dose: Not Given Magnesium Oxide (Mag-Ox) 400 mg PO DAILY [facility] Last Admin: 06/07/17 09:19 Dose: 400 mg Metoprolol Tartrate (Lopressor) 25 mg PO Q12 [facility] Last Admin: 06/07/17 09:19 Dose: Not Given Naproxen (Naprosyn Tab) 250 mg PO BID [facility] Last Admin: 06/07/17 16:44 Dose: 250 mg Ondansetron HCl (Zofran Inj) 4 mg IVP Q6 PRN PRN Reason: Nausea/Vomiting Last Admin: 06/05/17 09:12 Dose: 4 mg Pantoprazole Sodium (Protonix Ec Tab) 40 mg PO DAILY [facility] Last Admin: 06/07/17 09:18 Dose: 40 mg Potassium Chloride (K-Dur 20 Meq Er Tab) 20 meq PO DAILY [facility] Last Admin: 06/07/17 09:23 Dose: 20 meq Rivastigmine (Exelon 9.5 Mg/24 Hr Patch) 1 patch TD DAILY [facility] Last Admin: 06/07/17 09:18 Dose: 1 patch Fluticasone/Salmeterol (Advair Diskus 250/50) 1 puff INH Q12 [facility] Last Admin: 06/07/17 09:26 Dose: Not Given Sitagliptin Phosphate (Januvia) 50 mg PO DAILY [facility] Last Admin: 06/07/17 09:20 Dose: 50 mg Tolterodine Tartrate (Detrol) 2 mg PO BID [facility] Last Admin: 06/07/17 16:42 Dose: Not Given - Labs Labs: 06/07/17 04:30 06/07/17 04:30 PT 12.7 Seconds (9.8-13.1) 06/04/17 21:09 INR 1.1 (0.9-1.2) 06/04/17 21:09 APTT 33.1 Seconds (25.6-37.1) 06/04/17 21:09 - Constitutional Appears: Well - Head Exam Head Exam: ATRAUMATIC, NORMAL INSPECTION, NORMOCEPHALIC - Eye Exam Eye Exam: EOMI, Normal appearance, PERRL Pupil Exam: NORMAL ACCOMODATION, PERRL - ENT Exam ENT Exam: Mucous Membranes Dry, Normal Exam - Neck Exam Neck Exam: Full ROM, Normal Inspection. absent: Lymphadenopathy - Respiratory Exam Respiratory Exam: Clear to Ausculation Bilateral, NORMAL BREATHING PATTERN - Cardiovascular Exam Cardiovascular Exam: Irregular Rhythm, +S1, +S2, Murmur - GI/Abdominal Exam GI & Abdominal Exam: Soft, Normal Bowel Sounds. absent: Tenderness - Extremities Exam Extremities Exam: Full ROM, Normal Capillary Refill, Normal Inspection. absent : Joint Swelling, Pedal Edema - Back Exam Back Exam: NORMAL INSPECTION - Neurological Exam Neurological Exam: Alert, Awake, CN II-XII Intact, Oriented x3 - Psychiatric Exam Psychiatric exam: Normal Affect, Normal Mood - Skin Skin Exam: Dry, Intact, Normal Color, Warm Assessment and Plan (1) Afib Assessment & Plan: add digoxin cont bb add eliquis 5mg po bid Status: Ruled-out (2) Pulmonary HTN Assessment & Plan: add sildenafil dc lasix Status: Acute (3) Pedal edema Assessment & Plan: resolved Status: Acute (4) Acute exacerbation of CHF (congestive heart failure) Assessment & Plan: hold arb/hctz and lasix monitor cr Status: Acute
[2017-06-08 05:41] LABS: HEMATOCRIT 43.3 % (34.0-47.0); MEAN CELL VOLUME 91.1 fl (81.0-99.0); MEAN CORPUSCULAR HEMOGLOBIN 29.1 pg (27.0-31.0); MEAN CORPUSCULAR HGB CONC 31.9 g/dL (33.0-37.0); RED CELL DISTRIBUTION WIDTH 13.6 % (11.5-14.5); WHITE BLOOD COUNT 5.4 K/uL (4.8-10.8)
[2017-06-08 05:54] LABS: CALCIUM 9.3 mg/dL (8.4-10.2); MAGNESIUM 2.3 MG/DL (1.6-2.3); PHOSPHOROUS 3.4 mg/dl (2.5-4.5); POTASSIUM 3.8 MMOL/L (3.6-5.0)
[2017-06-08] MEDS: Levothyroxine 100 MCG TAB PO SCH (06:50)
[2017-06-08] MEDS ORDERED: metOLazone 5 MG TAB PO ONE (07:21)
[2017-06-08] MEDS: Sildenafil 20 MG TAB PO SCH ×3 (08:31→16:57)
[2017-06-08] MEDS: Fluticasone-Salmeterol 250-50mcg Diskus INH SCH ×2 (08:31→21:35)
[2017-06-08] MEDS: Amylase/Lipase/Protease 5,000 Units ECC PO SCH ×2 (08:31→16:56)
[2017-06-08] MEDS: DONEPEZIL HCL 5 MG PO SCH (08:35)
[2017-06-08] MEDS: Pantoprazole 40 mg EC Tab PO SCH (08:35)
[2017-06-08] MEDS: Potassium Chloride 20 mEq ER Tab PO SCH (08:36)
[2017-06-08] MEDS: Magnesium Oxide 400 mg Tab UD PO SCH (08:37)
[2017-06-08] MEDS: Enoxaparin 40 mg Syringe SC SCH (08:39)
--- NOTE | 2017-06-08 09:37 | CP.PCM.DIS ---
Provider - Provider Date of Admission: 06/05/17 16:35 Attending physician: Richard Moran MD Time Spent in preparation of Discharge (in minutes): 35 Hospital Course - Lab Results Lab Results: Micro Results 06/04/17 20:50 Blood-Venous Blood Culture - Preliminary NO GROWTH AFTER 3 DAYS 06/04/17 20:40 Blood-Venous Blood Culture - Preliminary NO GROWTH AFTER 3 DAYS Most Recent Lab Values WBC 5.4 K/uL (4.8-10.8) 06/08/17 05:26 RBC 4.75 Mil/uL (3.80-5.20) 06/08/17 05:26 Hgb 13.8 g/dL (12.0-16.0) 06/08/17 05:26 Hct 43.3 % (34.0-47.0) 06/08/17 05:26 MCV 91.1 fl (81.0-99.0) 06/08/17 05:26 MCH 29.1 pg (27.0-31.0) 06/08/17 05:26 MCHC 31.9 g/dL (33.0-37.0) L 06/08/17 05:26 RDW 13.6 % (11.5-14.5) 06/08/17 05:26 Plt Count 163 K/uL (130-400) 06/08/17 05:26 MPV 9.9 fl (7.2-11.7) 06/04/17 21:09 Neut % (Auto) 39.5 % (50.0-75.0) L 06/04/17 21:09 Lymph % (Auto) 47.0 % (20.0-40.0) H 06/04/17 21:09 Waldo % (Auto) 12.0 % (0.0-10.0) H 06/04/17 21:09 Eos % (Auto) 1.2 % (0.0-4.0) 06/04/17 21:09 Baso % (Auto) 0.3 % (0.0-2.0) 06/04/17 21:09 Neut # 2.6 K/uL (1.8-7.0) 06/04/17 21:09 Lymph # 3.1 K/uL (1.0-4.3) 06/04/17 21:09 Waldo # 0.8 K/uL (0.0-0.8) 06/04/17 21:09 Eos # 0.1 K/uL (0.0-0.7) 06/04/17 21:09 Baso # 0.0 K/uL (0.0-0.2) 06/04/17 21:09 PT 12.7 Seconds (9.8-13.1) 06/04/17 21:09 INR 1.1 (0.9-1.2) 06/04/17 21:09 APTT 33.1 Seconds (25.6-37.1) 06/04/17 21:09 Sodium 137 mmol/l (132-148) 06/08/17 05:26 Potassium 3.8 MMOL/L (3.6-5.0) 06/08/17 05:26 Chloride 95 mmol/L (98-107) L 06/08/17 05:26 Carbon Dioxide 35 mmol/L (22-30) H 06/08/17 05:26 Anion Gap 11 (10-20) 06/08/17 05:26 BUN 34 mg/dl (7-17) H 06/08/17 05:26 Creatinine 1.6 mg/dl (0.7-1.2) H 06/08/17 05:26 Est GFR ( Amer) 38 06/08/17 05:26 Est GFR (Non-Af Amer) 31 06/08/17 05:26 POC Glucose (mg/dL) 95 mg/dL (65-110) 06/08/17 05:41 Random Glucose 95 mg/dL (65-105) 06/08/17 05:26 Calcium 9.3 mg/dL (8.4-10.2) 06/08/17 05:26 Phosphorus 3.4 mg/dl (2.5-4.5) 06/08/17 05:26 Magnesium 2.3 MG/DL (1.6-2.3) 06/08/17 05:26 Total Bilirubin 0.6 mg/dl (0.2-1.3) 06/07/17 04:30 AST 26 U/L (14-36) 06/07/17 04:30 ALT 24 U/L (9-52) 06/07/17 04:30 Alkaline Phosphatase 73 U/L (38-126) 06/07/17 04:30 Troponin I 0.0230 ng/mL (0.00-0.120) 06/05/17 12:39 NT-Pro-B Natriuret Pep 3440 pg/ml (0-900) H 06/07/17 04:30 Total Protein 6.1 G/DL (6.3-8.2) L 06/07/17 04:30 Albumin 3.4 g/dL (3.5-5.0) L 06/07/17 04:30 Globulin 2.7 gm/dL (2.2-3.9) 06/07/17 04:30 Albumin/Globulin Ratio 1.3 (1.0-2.1) 06/07/17 04:30 - Hospital Course Hospital Course: 81 y/o [place] female with a history of CHF, A-Fib, asthma, and dyslipidemia, brought in by EMS, presents to the ED 06/04/17 complaining of shortness of breath, onset of 1 day. She reports of having orthopnea, dyspnea on exertion, as well as paroxysmal nocturnal dyspnea. She also noted that she has been compliance with her Lasix medication. She denies the use of any cigarettes or alcohol. Patient admittend in telemetry, fluid depleted with diuretics, SOB improvec, initial proBNP 2270. Cardiology consult appreciated. pt started in digoxin yesterday and added eliquis 5 mg bid for A fib. Started on sildenafil for pulmonary HTN. No complications during hospitalization Diagnosis 81 yo, f, PMx/o CHF, COPD, morbid obesity, A fib, DM, HTN admitted for CHF exacerbation. 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 Continue Lopressor 25 mg po BID add eliquis 5mg po bid 4) COPD Duoneb 5) DM Continue januvia Accucheck ACHS 6) DVT Prophylaxis -Started in Eliquis Discharge Exam - Head Exam Head Exam: ATRAUMATIC, NORMAL INSPECTION, NORMOCEPHALIC - Eye Exam Eye Exam: Normal appearance - Respiratory Exam Respiratory Exam: NORMAL BREATHING PATTERN. absent: Rales, Rhonchi - Cardiovascular Exam Cardiovascular Exam: Irregular Rhythm, +S1, +S2 - GI/Abdominal Exam GI & Abdominal Exam: Normal Bowel Sounds, Soft. absent: Rebound - Neurological Exam Neurological exam: Alert, Oriented x3 - Psychiatric Exam Psychiatric exam: Normal Affect - Skin Skin Exam: Intact Discharge Plan - Discharge Medications Prescriptions: Furosemide [Lasix] 40 mg IV Q12 #30 vial - Follow Up Plan Condition: FAIR Disposition: HOME/ ROUTINE Instructions: Heart Failure (DC) Referrals: Richard Moran MD [Staff Provider] - Jacob Walters MD [Staff Provider] -
--- NOTE | 2017-06-08 11:35 | CP.PCM.PN ---
Subjective - Date & Time of Evaluation Date of Evaluation: 06/08/17 Time of Evaluation: 11:22 - Subjective Subjective: PGY 2 progress note for cardiology, Dr. Walters Pt seen and examined at bedside No acute events overnight. Pt is resting comfortably in chair. Denies having any CP, SOB, abd pain, N/V/D/C. Patient is urinating without difficulty now. 12 point ROS negative except for the above mentioned. Objective - Vital Signs/Intake and Output Vital Signs (last 24 hours): Temp Pulse Resp BP Pulse Ox 97.4 F L 75 20 100/69 97 06/08/17 08:40 06/08/17 08:40 06/08/17 08:40 06/08/17 08:40 06/08/17 08:40 - Medications Medications: Current Medications Albuterol (Ventolin Hfa 90 Mcg/Actuation (8 G)) 2 puff INH Q6 PRN PRN Reason: sob Amylase (Pancrease 44981 U-5000 U-91178 U) 10,000 unit PO BIDWM [facility] Last Admin: 06/08/17 08:31 Dose: 10,000 unit Aspirin (Ecotrin) 81 mg PO DAILY [facility] Last Admin: 06/08/17 08:31 Dose: 81 mg Atorvastatin Calcium (Lipitor) 10 mg PO DAILY [facility] Last Admin: 06/08/17 08:37 Dose: 10 mg Docusate Sodium (Colace) 200 mg PO HS [facility] Last Admin: 06/07/17 22:49 Dose: 200 mg Donepezil HCl (Aricept Odt) 5 mg PO DAILY [facility] Last Admin: 06/08/17 08:35 Dose: 5 mg Enoxaparin Sodium (Lovenox) 40 mg SC DAILY [facility] PRN Reason: Protocol Last Admin: 06/08/17 08:39 Dose: 40 mg Furosemide (Lasix) 40 mg IV BID [facility] Last Admin: 06/08/17 08:38 Dose: 40 mg Levothyroxine Sodium (Synthroid) 100 mcg PO DAILY@0630 [facility] Last Admin: 06/08/17 06:50 Dose: 100 mcg Magnesium Oxide (Mag-Ox) 400 mg PO DAILY [facility] Last Admin: 06/08/17 08:37 Dose: 400 mg Metoprolol Tartrate (Lopressor) 25 mg PO Q12 [facility] Last Admin: 06/08/17 08:34 Dose: 25 mg Ondansetron HCl (Zofran Inj) 4 mg IVP Q6 PRN PRN Reason: Nausea/Vomiting Last Admin: 06/05/17 09:12 Dose: 4 mg Pantoprazole Sodium (Protonix Ec Tab) 40 mg PO DAILY [facility] Last Admin: 06/08/17 08:35 Dose: 40 mg Potassium Chloride (K-Dur 20 Meq Er Tab) 20 meq PO DAILY [facility] Last Admin: 06/08/17 08:36 Dose: 20 meq Rivastigmine (Exelon 9.5 Mg/24 Hr Patch) 1 patch TD DAILY [facility] Last Admin: 06/08/17 08:32 Dose: 1 patch Fluticasone/Salmeterol (Advair Diskus 250/50) 1 puff INH Q12 [facility] Last Admin: 06/08/17 08:31 Dose: 1 puff Sildenafil Citrate (Revatio) 20 mg PO TID [facility] Last Admin: 06/08/17 08:31 Dose: 20 mg Sitagliptin Phosphate (Januvia) 50 mg PO DAILY [facility] Last Admin: 06/08/17 08:38 Dose: 50 mg Sucralfate (Carafate Oral Susp) 1 gm PO BID [facility] Tolterodine Tartrate (Detrol) 2 mg PO BID [facility] Last Admin: 06/08/17 08:35 Dose: 2 mg - Labs Labs: 06/08/17 05:26 06/08/17 05:26 PT 12.7 Seconds (9.8-13.1) 06/04/17 21:09 INR 1.1 (0.9-1.2) 06/04/17 21:09 APTT 33.1 Seconds (25.6-37.1) 06/04/17 21:09 - Constitutional Appears: Non-toxic, No Acute Distress - Head Exam Head Exam: ATRAUMATIC - ENT Exam ENT Exam: Mucous Membranes Moist - Respiratory Exam Respiratory Exam: Clear to Ausculation Bilateral, NORMAL BREATHING PATTERN. absent: Accessory Muscle Use, Rales, Rhonchi, Wheezes, Respiratory Distress, Stridor - Cardiovascular Exam Cardiovascular Exam: REGULAR RHYTHM, +S1, +S2. absent: Gallop, Rubs, Murmur - GI/Abdominal Exam GI & Abdominal Exam: Soft, Normal Bowel Sounds. absent: Distended, Firm, Guarding, Rigid, Tenderness, Organomegaly - Extremities Exam Extremities Exam: absent: Pedal Edema, Tenderness - Neurological Exam Neurological Exam: Alert, Awake, Oriented x3 - Psychiatric Exam Psychiatric exam: Normal Affect, Normal Mood - Skin Skin Exam: Dry, Intact, Normal Color, Warm Assessment and Plan - Assessment and Plan (Free Text) Assessment: (1) Afib HR is currentlys stable Received one dose of digoxin 0.125 mg yesterday. will repeat one more dose today Continue Lopressor 25 mg po BID add eliquis 5mg po bid (2) Pulmonary HTN Started on sildenafil (3) Pedal edema resolved (4) Acute exacerbation of CHF (congestive heart failure) Discontinue lasixs Will repeat Pro-BNP. If BNP <400, pt ok to transfer to TCU Will also check random cortisol Case will be discussed with attending, Dr. Walters
[2017-06-08] MEDS: Sucralfate 1 gm/10 ml Oral Susp UD PO SCH ×2 (12:04→17:00)
[2017-06-08 15:48] LABS: CALCIUM 9.5 mg/dL (8.4-10.2); POTASSIUM 3.9 MMOL/L (3.6-5.0)
[2017-06-08 16:57] VITALS: PULSE 86
[2017-06-08] MEDS ORDERED: Digoxin 125 mcg (0.125 mg) Tab PO ONE (17:00)
[2017-06-09 08:07] VITALS: RESP 16
--- NOTE | 2017-06-09 09:02 | CP.PCM.PN ---
Objective - Vital Signs/Intake and Output Vital Signs (last 24 hours): Temp Pulse Resp BP Pulse Ox 98.4 F 66 16 104/73 100 06/09/17 08:06 06/09/17 08:06 06/09/17 08:06 06/09/17 08:06 06/09/17 08:06 Intake and Output: 06/09/17 06/09/17 06:59 18:59 Intake Total 720 Output Total 550 Balance 170 - Medications Medications: Current Medications Albuterol (Ventolin Hfa 90 Mcg/Actuation (8 G)) 2 puff INH Q6 PRN PRN Reason: sob Amylase (Pancrease 87730 U-5000 U-39723 U) 10,000 unit PO BIDWM [facility] Last Admin: 06/08/17 16:56 Dose: 10,000 unit Apixaban (Eliquis) 2.5 mg PO BID [facility] PRN Reason: Protocol Last Admin: 06/08/17 16:56 Dose: 2.5 mg Aspirin (Ecotrin) 81 mg PO DAILY [facility] Last Admin: 06/08/17 08:31 Dose: 81 mg Atorvastatin Calcium (Lipitor) 10 mg PO DAILY [facility] Last Admin: 06/08/17 08:37 Dose: 10 mg Docusate Sodium (Colace) 200 mg PO HS [facility] Last Admin: 06/08/17 21:35 Dose: 200 mg Donepezil HCl (Aricept Odt) 5 mg PO DAILY [facility] Last Admin: 06/08/17 08:35 Dose: 5 mg Levothyroxine Sodium (Synthroid) 100 mcg PO DAILY@0630 [facility] Last Admin: 06/08/17 06:50 Dose: 100 mcg Magnesium Oxide (Mag-Ox) 400 mg PO DAILY [facility] Last Admin: 06/08/17 08:37 Dose: 400 mg Metoprolol Tartrate (Lopressor) 25 mg PO Q12 [facility] Last Admin: 06/08/17 21:35 Dose: Not Given Ondansetron HCl (Zofran Inj) 4 mg IVP Q6 PRN PRN Reason: Nausea/Vomiting Last Admin: 06/05/17 09:12 Dose: 4 mg Pantoprazole Sodium (Protonix Ec Tab) 40 mg PO DAILY [facility] Last Admin: 06/08/17 08:35 Dose: 40 mg Potassium Chloride (K-Dur 20 Meq Er Tab) 20 meq PO DAILY [facility] Last Admin: 06/08/17 08:36 Dose: 20 meq Rivastigmine (Exelon 9.5 Mg/24 Hr Patch) 1 patch TD DAILY [facility] Last Admin: 06/08/17 08:32 Dose: 1 patch Fluticasone/Salmeterol (Advair Diskus 250/50) 1 puff INH Q12 [facility] Last Admin: 06/08/17 21:35 Dose: 1 puff Sildenafil Citrate (Revatio) 20 mg PO TID [facility] Last Admin: 06/08/17 16:57 Dose: 20 mg Sitagliptin Phosphate (Januvia) 50 mg PO DAILY [facility] Last Admin: 06/08/17 08:38 Dose: 50 mg Sucralfate (Carafate Oral Susp) 1 gm PO BID [facility] Last Admin: 06/08/17 17:00 Dose: 1 gm Tolterodine Tartrate (Detrol) 2 mg PO BID [facility] Last Admin: 06/08/17 17:01 Dose: 2 mg - Labs Labs: 06/08/17 05:26 06/08/17 14:30 PT 12.7 Seconds (9.8-13.1) 06/04/17 21:09 INR 1.1 (0.9-1.2) 06/04/17 21:09 APTT 33.1 Seconds (25.6-37.1) 06/04/17 21:09
[2017-06-09] MEDS: Amylase/Lipase/Protease 5,000 Units ECC PO SCH ×2 (09:16→17:03)
[2017-06-09] MEDS: Sucralfate 1 gm/10 ml Oral Susp UD PO SCH ×2 (09:17→17:03)
[2017-06-09] MEDS: Pantoprazole 40 mg EC Tab PO SCH (09:18)
[2017-06-09] MEDS: Levothyroxine 100 MCG TAB PO SCH (09:18)
[2017-06-09] MEDS: Magnesium Oxide 400 mg Tab UD PO SCH (09:19)
[2017-06-09] MEDS: Fluticasone-Salmeterol 250-50mcg Diskus INH SCH ×2 (09:20→20:35)
[2017-06-09] MEDS: Sildenafil 20 MG TAB PO SCH ×3 (09:20→17:03)
[2017-06-09] MEDS: Potassium Chloride 20 mEq ER Tab PO SCH (09:22)
[2017-06-09] MEDS: DONEPEZIL HCL 5 MG PO SCH (09:24)
[2017-06-09 11:15] LABS: HEMATOCRIT 45.6 % (34.0-47.0); MEAN CELL VOLUME 90.8 fl (81.0-99.0); MEAN CORPUSCULAR HEMOGLOBIN 29.5 pg (27.0-31.0); MEAN CORPUSCULAR HGB CONC 32.5 g/dL (33.0-37.0); RED CELL DISTRIBUTION WIDTH 13.7 % (11.5-14.5); WHITE BLOOD COUNT 4.5 K/uL (4.8-10.8)
[2017-06-09 11:32] LABS: POTASSIUM 3.9 MMOL/L (3.6-5.0)
[2017-06-09 11:38] LABS: ALB/GLOB RATIO 1.3 (1.0-2.1); BILIRUBIN,TOTAL 0.4 mg/dl (0.2-1.3); CALCIUM 9.2 mg/dL (8.4-10.2); TOTAL PROTEIN 6.7 G/DL (6.3-8.2)
--- NOTE | 2017-06-09 13:23 | CP.PCM.DIS ---
Provider - Provider Date of Admission: 06/05/17 16:35 Attending physician: Richard Moran MD Time Spent in preparation of Discharge (in minutes): 30 Hospital Course - Lab Results Lab Results: Micro Results 06/04/17 20:50 Blood-Venous Blood Culture - Preliminary NO GROWTH AFTER 4 DAYS 06/04/17 20:40 Blood-Venous Blood Culture - Preliminary NO GROWTH AFTER 4 DAYS Most Recent Lab Values WBC 4.5 K/uL (4.8-10.8) L 06/09/17 11:03 RBC 5.02 Mil/uL (3.80-5.20) 06/09/17 11:03 Hgb 14.8 g/dL (12.0-16.0) 06/09/17 11:03 Hct 45.6 % (34.0-47.0) 06/09/17 11:03 MCV 90.8 fl (81.0-99.0) 06/09/17 11:03 MCH 29.5 pg (27.0-31.0) 06/09/17 11:03 MCHC 32.5 g/dL (33.0-37.0) L 06/09/17 11:03 RDW 13.7 % (11.5-14.5) 06/09/17 11:03 Plt Count 185 K/uL (130-400) 06/09/17 11:03 MPV 9.9 fl (7.2-11.7) 06/04/17 21:09 Neut % (Auto) 39.5 % (50.0-75.0) L 06/04/17 21:09 Lymph % (Auto) 47.0 % (20.0-40.0) H 06/04/17 21:09 [place] % (Auto) 12.0 % (0.0-10.0) H 06/04/17 21:09 Eos % (Auto) 1.2 % (0.0-4.0) 06/04/17 21:09 Baso % (Auto) 0.3 % (0.0-2.0) 06/04/17 21:09 Neut # 2.6 K/uL (1.8-7.0) 06/04/17 21:09 Lymph # 3.1 K/uL (1.0-4.3) 06/04/17 21:09 [place] # 0.8 K/uL (0.0-0.8) 06/04/17 21:09 Eos # 0.1 K/uL (0.0-0.7) 06/04/17 21:09 Baso # 0.0 K/uL (0.0-0.2) 06/04/17 21:09 PT 12.7 Seconds (9.8-13.1) 06/04/17 21:09 INR 1.1 (0.9-1.2) 06/04/17 21:09 APTT 33.1 Seconds (25.6-37.1) 06/04/17 21:09 Sodium 135 mmol/l (132-148) 06/09/17 11:03 Potassium 3.9 MMOL/L (3.6-5.0) 06/09/17 11:03 Chloride 90 mmol/L (98-107) L 06/09/17 11:03 Carbon Dioxide 39 mmol/L (22-30) H 06/09/17 11:03 Anion Gap 10 (10-20) 06/09/17 11:03 BUN 28 mg/dl (7-17) H 06/09/17 11:03 Creatinine 1.1 mg/dl (0.7-1.2) 06/09/17 11:03 Est GFR ( Amer) 58 06/09/17 11:03 Est GFR (Non-Af Amer) 48 06/09/17 11:03 POC Glucose (mg/dL) 135 mg/dL (65-110) H 06/09/17 10:56 Random Glucose 96 mg/dL (65-105) 06/09/17 11:03 Calcium 9.2 mg/dL (8.4-10.2) 06/09/17 11:03 Phosphorus 3.4 mg/dl (2.5-4.5) 06/08/17 05:26 Magnesium 2.3 MG/DL (1.6-2.3) 06/08/17 05:26 Total Bilirubin 0.4 mg/dl (0.2-1.3) 06/09/17 11:03 AST 27 U/L (14-36) 06/09/17 11:03 ALT 34 U/L (9-52) 06/09/17 11:03 Alkaline Phosphatase 65 U/L (38-126) 06/09/17 11:03 Troponin I 0.0230 ng/mL (0.00-0.120) 06/05/17 12:39 NT-Pro-B Natriuret Pep 2240 pg/ml (0-900) H 06/09/17 11:03 Total Protein 6.7 G/DL (6.3-8.2) 06/09/17 11:03 Albumin 3.8 g/dL (3.5-5.0) 06/09/17 11:03 Globulin 2.9 gm/dL (2.2-3.9) 06/09/17 11:03 Albumin/Globulin Ratio 1.3 (1.0-2.1) 06/09/17 11:03 Plasma Cortisol PM 4.25 ug/dL (1.7-14.1) 06/08/17 17:30 - Hospital Course Hospital Course: 81 y/o [place] female with a history of CHF, A-Fib, asthma, and dyslipidemia, brought in by EMS, presents to the ED 06/04/17 complaining of shortness of breath, onset of 1 day. She reports of having orthopnea, dyspnea on exertion, as well as paroxysmal nocturnal dyspnea. She also noted that she has been compliance with her Lasix medication. She denies the use of any cigarettes or alcohol. Patient admittend in telemetry, fluid depleted with diuretics, SOB improved, proBNP 2270. Cardiology consult appreciated. pt given digoxin during hospitalization and added eliquis 5 mg bid for A fib. Started on sildenafil for pulmonary HTN. No complications during hospitalization. Patient refused transfer to TCU yesterday and today. Patient cleared by kitchen bath designer to go home.No digoxin for home. Patient agree to go home today . Diagnosis 81 yo, f, PMx/o CHF, COPD, morbid obesity, A fib, DM, HTN admitted for CHF exacerbation. 1) Diastolic CHF exacerbation -controlled -cardiac consult appreciated: 2) Hypokalemia -corrected 3) A fib -Afib on telemetry, no different arrhythmia overnight or today Belt Sewer consult appreciated: on Digoxin . Continue Lopressor 25 mg po BID -eliquis 5mg po bid 4) COPD Duoneb 5) DM Continue januvia Accucheck ACHS 6) DVT Prophylaxis -Eliquis Discharge Exam - Head Exam Head Exam: ATRAUMATIC, NORMOCEPHALIC - Eye Exam Eye Exam: Normal appearance - Respiratory Exam Respiratory Exam: NORMAL BREATHING PATTERN. absent: Rales, Rhonchi, Wheezes - Cardiovascular Exam Cardiovascular Exam: REGULAR RHYTHM, +S1, +S2 - GI/Abdominal Exam GI & Abdominal Exam: Normal Bowel Sounds, Soft. absent: Tenderness - Extremities Exam Extremities exam: normal inspection - Neurological Exam Neurological exam: Alert, Oriented x3 - Psychiatric Exam Psychiatric exam: Normal Affect, Normal Mood - Skin Skin Exam: Intact Discharge Plan - Follow Up Plan Condition: FAIR Disposition: HOME/ ROUTINE Instructions: Heart Failure (DC) Referrals: Richard Moran MD [Staff Provider] - Jacob Walters MD [Staff Provider] - Clinical Quality Measures - CQM - Heart Failure AnticoagulationTherapy for Atrial Fibrillation/Atrialflutter: Yes
[2017-06-09 20:07] VITALS: TEMP 97.8; O2SAT 99
[2017-06-09 20:36] VITALS: BP 102/64; PULSE 72
== END 2017-06-09 21:07 | DRG 292 ==
LOC: H.ER 18:57 → H.ERHOLD 20:37 → H.TEL 22:53 → OBSVTOIN 06-05 16:35
PROVIDERS: ADMIT Internal Medicine; ATTEND Internal Medicine
DX: I11.0 Hypertensive heart disease with heart failure (principal); I48.1 Persistent atrial fibrillation; I50.33 Acute on chronic diastolic (congestive) heart failure; I27.20 Pulmonary hypertension, unspecified; E87.6 Hypokalemia; R39.2 Extrarenal uremia; I42.9 Cardiomyopathy, unspecified; E66.01 Morbid (severe) obesity due to excess calories; J44.9 Chronic obstructive pulmonary disease, unspecified; E03.9 Hypothyroidism, unspecified; E11.9 Type 2 diabetes mellitus without complications; K21.9 Gastro-esophageal reflux disease without esophagitis; E78.5 Hyperlipidemia, unspecified; F41.9 Anxiety disorder, unspecified; M19.90 Unspecified osteoarthritis, unspecified site; H40.9 Unspecified glaucoma; Z68.36 Body mass index [BMI] 36.0-36.9, adult; Z79.01 Long term (current) use of anticoagulants; Z79.82 Long term (current) use of aspirin; Z91.11 Patient's noncompliance with dietary regimen; H54.61 Unqualified visual loss, right eye, normal vision left eye; Z86.73 Personal history of transient ischemic attack (TIA), and cerebral infarction without residual deficits; Z87.11 Personal history of peptic ulcer disease; Z79.84 Long term (current) use of oral hypoglycemic drugs

== ENCOUNTER 2017-06-08 11:08 | Inpatient (IN) | payer OTHER, MEDICAID ==
[2017-06-07 17:58] VITALS: PULSE 105
[2017-06-09 22:09] VITALS: BMI 37.1
[2017-06-10] MEDS ORDERED: Albuterol HFA 90 mcg/actuation (8 g) INH PRN (00:52)
[2017-06-10] MEDS: Levothyroxine 100 MCG TAB PO SCH (06:20)
[2017-06-10] MEDS: Amylase/Lipase/Protease 5,000 Units ECC PO SCH ×2 (08:41→17:47)
[2017-06-10] MEDS: Pantoprazole 40 mg EC Tab PO SCH (08:41)
[2017-06-10] MEDS: Sildenafil 20 MG TAB PO SCH ×3 (08:41→17:48)
[2017-06-10] MEDS: Sucralfate 1 gm/10 ml Oral Susp UD PO SCH ×2 (08:43→16:57)
[2017-06-10] MEDS: Potassium Chloride 20 mEq ER Tab PO SCH (08:44)
[2017-06-10] MEDS: Magnesium Oxide 400 mg Tab UD PO SCH ×2 (08:45→17:46)
[2017-06-10] MEDS: Fluticasone-Salmeterol 250-50mcg Diskus IH SCH ×2 (08:46→21:16)
[2017-06-10] MEDS ORDERED: DONEPEZIL HCL 5 MG PO SCH (09:00)
[2017-06-10] MEDS ORDERED: TOLTERODINE 4 MG PO SCH (09:00)
[2017-06-10] MEDS: AMYLASE PO SCH ×2 (09:00→18:05)
[2017-06-10] MEDS ORDERED: Levothyroxine 100 MCG TAB PO SCH (09:00)
[2017-06-10] MEDS ORDERED: Fluticasone-Salmeterol 250-50mcg Diskus INH SCH (09:00)
[2017-06-10] MEDS: PROTEASE PO SCH ×2 (09:00→18:05)
[2017-06-10] MEDS: LIPASE PO SCH ×2 (09:00→18:05)
--- NOTE | 2017-06-10 16:52 | HP ---
CHIEF COMPLAINT: The patient was transferred from acute medical care to transitional care for further optimization. HISTORY OF PRESENT ILLNESS: This is a 81-year-old female with multiple medical problems who was admitted to medical floor with acute exacerbation of CHF. The patient was stabilized and transferred to transitional care unit for further optimization. At this time, the patient complains of generalized weakness, but feels much better compared to her symptoms in medical floor. REVIEW OF SYSTEMS: Positive for generalized malaise, weakness, fatigue and tiredness. Review of systems otherwise is negative for headache, dizziness, syncope, loss of consciousness, chest pain, shortness of breath, nausea, vomiting, diarrhea, constipation, any knee joint or extremity pain. Review of systems of all other organ systems is unremarkable. PAST MEDICAL HISTORY: Significant for hypertension, congestive heart failure, COPD, morbid obesity, dyspepsia. PAST SURGICAL HISTORY: Unremarkable. PERSONAL HISTORY: The patient is currently nonsmoker, nondrinker. No substance abuse. MEDICATIONS: The patient is on multiple medications, which is as per reconciliation sheet, which was reviewed and ordered. ALLERGIES: THE PATIENT IS NOT ALLERGIC TO ANY MEDICATION. FAMILY HISTORY: Noncontributory. PHYSICAL EXAMINATION GENERAL: Well-built, well-nourished, overweight female, in no acute distress. VITAL SIGNS: Temperature afebrile, pulse 80, respirations 18, blood pressure 136/76. HEENT: Pupils are reacting to light. Normocephalic and atraumatic skull. The patient is wearing glasses. NECK: No JVD. No thyromegaly. No lymphadenopathy. No nystagmus. HEART: S1 and S2, normal and regular. No significant murmur, gallop or rub is heard. LUNGS: Shows good bilateral air exchange. No rales or rhonchi. ABDOMEN: Soft and nontender. No organomegaly. No fluid. Bowel sounds are plus. EXTREMITIES: No edema. No calf swelling. No tenderness. No acute ischemia. CENTRAL NERVOUS SYSTEM: Essentially unchanged and there is no sign of any acute gross focal motor or sensory neurological deficit. DIAGNOSTIC DATA: Available diagnostic data reviewed. ADMITTING IMPRESSION: Congestive heart failure, hypertension, dyspepsia. PLAN: As ordered. Case and plan discussed with the patient. Richard Moran MD
[2017-06-10] MEDS: HCTZ/Losartan 12.5/50 Tab PO SCH (17:00)
[2017-06-10] MEDS ORDERED: Magnesium Citrate Oral SOL (300 ml) PO ONE (21:46)
[2017-06-11] MEDS: Levothyroxine 100 MCG TAB PO SCH (06:22)
[2017-06-11] MEDS: Sucralfate 1 gm/10 ml Oral Susp UD PO SCH ×2 (09:19→17:05)
[2017-06-11] MEDS: Sildenafil 20 MG TAB PO SCH ×3 (09:19→17:02)
[2017-06-11] MEDS: Magnesium Oxide 400 mg Tab UD PO SCH (09:19)
[2017-06-11] MEDS: Pantoprazole 40 mg EC Tab PO SCH (09:19)
[2017-06-11] MEDS: Potassium Chloride 20 mEq ER Tab PO SCH (09:19)
[2017-06-11] MEDS: Amylase/Lipase/Protease 5,000 Units ECC PO SCH ×2 (09:19→17:01)
[2017-06-11] MEDS: Fluticasone-Salmeterol 250-50mcg Diskus IH SCH ×2 (09:22→21:33)
[2017-06-11] MEDS: HCTZ/Losartan 12.5/50 Tab PO SCH (16:58)
[2017-06-12] MEDS: Levothyroxine 100 MCG TAB PO SCH (06:33)
[2017-06-12] MEDS: Sucralfate 1 gm/10 ml Oral Susp UD PO SCH ×2 (09:01→17:24)
[2017-06-12] MEDS: Fluticasone-Salmeterol 250-50mcg Diskus IH SCH ×2 (10:15→21:35)
[2017-06-12] MEDS: Magnesium Oxide 400 mg Tab UD PO SCH (10:18)
[2017-06-12] MEDS: Amylase/Lipase/Protease 5,000 Units ECC PO SCH ×2 (10:19→17:25)
[2017-06-12] MEDS: Pantoprazole 40 mg EC Tab PO SCH (10:19)
[2017-06-12] MEDS: Potassium Chloride 20 mEq ER Tab PO SCH (10:20)
[2017-06-12] MEDS: Sildenafil 20 MG TAB PO SCH ×3 (10:20→17:25)
--- NOTE | 2017-06-12 12:50 | PN ---
DATE: 06/12/2017 SUBJECTIVE: The patient is seen and examined. Interim events noted. The patient remains in Transitional Care Unit. The patient feels okay. Worried about her low blood pressure. Complains of diabetic neuropathic pain, for which the patient is to go to Podiatry. No chest pain. No shortness of breath. PHYSICAL EXAMINATION: GENERAL: The patient is in no acute distress. VITAL SIGNS: Stable. HEART: S1 and S2 normal, regular. LUNGS: Good bilateral air exchange. ABDOMEN: Soft and nontender. EXTREMITIES: No edema. No calf swelling. No tenderness. No acute ischemia. CENTRAL NERVOUS SYSTEM: Essentially unchanged. DIAGNOSTIC DATA: Available diagnostic data reviewed. ASSESSMENT AND PLAN: The patient's blood pressure is slightly low, but the patient has no hypotension symptoms. We will discontinue Hyzaar and start the patient on Cozaar 25 mg. Plan as ordered. Case and plan discussed with the patient. Richard Moran MD
[2017-06-13] MEDS: Levothyroxine 100 MCG TAB PO SCH (06:35)
--- NOTE | 2017-06-13 08:56 | PN ---
DATE: 06/11/2017 SUBJECTIVE: The patient is seen and examined. Interim events noted. The patient remains in Transitional Care Unit. The patient feels okay. Denies any specific complaints. No chest pain. No shortness of breath. The patient has refused some medication. PHYSICAL EXAMINATION GENERAL: The patient is in no acute distress. VITAL SIGNS: Stable. HEART: S1 and S2 normal, regular. LUNGS: Good bilateral air exchange. ABDOMEN: Soft and nontender. EXTREMITIES: No edema. No calf swelling. No tenderness. No acute ischemia. CENTRAL NERVOUS SYSTEM: Essentially unchanged. DIAGNOSTIC DATA: Available diagnostic data reviewed. ASSESSMENT AND PLAN: Overall, the patient is clinically stable. Plan as ordered. Richard Moran MD
[2017-06-13] MEDS: Fluticasone-Salmeterol 250-50mcg Diskus IH SCH ×2 (09:06→21:33)
[2017-06-13] MEDS: Pantoprazole 40 mg EC Tab PO SCH (09:06)
[2017-06-13] MEDS: Sildenafil 20 MG TAB PO SCH ×3 (09:06→16:35)
[2017-06-13] MEDS: Magnesium Oxide 400 mg Tab UD PO SCH (09:07)
[2017-06-13] MEDS: Potassium Chloride 20 mEq ER Tab PO SCH (09:07)
[2017-06-13] MEDS: Amylase/Lipase/Protease 5,000 Units ECC PO SCH ×2 (09:07→16:34)
[2017-06-13] MEDS: Sucralfate 1 gm/10 ml Oral Susp UD PO SCH ×2 (09:09→16:35)
--- NOTE | 2017-06-13 10:41 | PN ---
DATE: 06/13/2017 SUBJECTIVE: The patient is seen and examined. Interim events noted. The patient feels a little better. Was able to ambulate around the unit. No chest pain. No shortness of breath. Did receive some blood pressure medication. PHYSICAL EXAMINATION: GENERAL: The patient is in no acute distress. VITAL SIGNS: Stable. HEART: S1 and S2, normal and regular. LUNGS: Good bilateral air exchange. ABDOMEN: Soft, nontender. EXTREMITIES: No edema. No calf swelling. No tenderness. No acute ischemia. CENTRAL NERVOUS SYSTEM: Essentially unchanged. DIAGNOSTIC DATA: Available diagnostic data reviewed. ASSESSMENT AND PLAN: The patient is hypotensive, but no orthostatic and the patient does not have any sign of organ hypoperfusion. The patient explained about low blood pressure and the patient agreed to take medication. Plan as ordered. Richard Moran MD
--- NOTE | 2017-06-13 16:55 | CP.PCM.CON ---
History of Present Illness - History of Present Illness History of Present Illness: Podiatry Consult Note - Dr. Beth 81 year old female patient seen and evaluated in TCU for painful elongated nails. Patient OOB in chair, hemodyamically stable and NAD. Patient reports painful elongated nails that cause discomfort with ambulation and when wearing shoes. Patient unable to trim them herself due to poor vision. States she sees a crotch piece baster on an outpatient basis for routine care. Denies N/V/F/D/C/SOB/calf pain. Review of Systems - Review of Systems All systems: reviewed and no additional remarkable complaints except (as per HPI ) Past Patient History - Infectious Disease Hx of Infectious Diseases: None - Past Medical History & Family History Past Medical History?: Yes - Past Social History Smoking Status: Never Smoked - CARDIAC Hx Atrial Fibrillation: Yes Hx Congestive Heart Failure: Yes Hx Hypercholesterolemia: Yes Hx Hypertension: Yes - PULMONARY Hx Chronic Obstructive Pulmonary Disease (COPD): Yes - NEUROLOGICAL Hx Neurological Disorder: Yes HX Cerebrovascular Accident: Yes - HEENT Hx HEENT Problems: Yes Hx Blind: Yes (Right eye) Hx Glaucoma: Yes Other/Comment: Hx [place] with hearing aids - RENAL Hx Chronic Kidney Disease: No - ENDOCRINE/METABOLIC Hx Endocrine Disorders: Yes Hx Diabetes Mellitus Type 2: Yes Hx Hypothyroidism: Yes - HEMATOLOGICAL/ONCOLOGICAL Hx AIDS: No Hx Human Immunodeficiency Virus (HIV): No - INTEGUMENTARY Hx Dermatological Problems: No - MUSCULOSKELETAL/RHEUMATOLOGICAL Hx Falls: No - GASTROINTESTINAL Hx Gastrointestinal Disorders: Yes Hx Gastroesophageal Reflux: Yes (Peptic Ulcer disease) - GENITOURINARY/GYNECOLOGICAL Hx Genitourinary Disorders: Yes Hx Incontinence: Yes - PSYCHIATRIC Hx Substance Use: No - SURGICAL HISTORY Hx Appendectomy: Yes - ANESTHESIA Hx Anesthesia: Yes Hx Anesthesia Reactions: No Hx Malignant Hyperthermia: No Meds Allergies/Adverse Reactions: Allergies Allergy/AdvReac Type Severity Reaction Status Date / Time No Known Allergies Allergy Verified 06/04/17 19:02 - Medications Medications: Current Medications Albuterol (Ventolin Hfa 90 Mcg/Actuation (8 G)) 1 puff INH Q6 PRN PRN Reason: sob Amylase (Pancrease 78460 U-5000 U-[id number] U) 10,000 unit PO BIDWM [facility] Last Admin: 06/13/17 16:34 Dose: 10,000 unit Apixaban (Eliquis) 2.5 mg PO BID [facility] PRN Reason: Protocol Last Admin: 06/13/17 16:35 Dose: 2.5 mg Aspirin (Ecotrin) 81 mg PO DAILY [facility] Last Admin: 06/13/17 09:08 Dose: 81 mg Atorvastatin Calcium (Lipitor) 10 mg PO DAILY [facility] Last Admin: 06/13/17 09:08 Dose: 10 mg Docusate Sodium (Colace) 200 mg PO HS [facility] Last Admin: 06/12/17 21:39 Dose: 200 mg Donepezil HCl (Aricept) 5 mg PO DAILY [facility] Last Admin: 06/13/17 09:09 Dose: 5 mg Furosemide (Lasix) 40 mg PO Q12 [facility] Last Admin: 06/13/17 09:15 Dose: 40 mg Gabapentin (Neurontin) 300 mg PO TID [facility] Last Admin: 06/13/17 16:35 Dose: 300 mg Home Med (Lipase/Protease/Amylase [Zenpep Dr 3,000 Units Capsule]) 2 cap PO BID [facility] Last Admin: 06/10/17 18:05 Dose: Not Given Levothyroxine Sodium (Synthroid) 100 mcg PO DAILY@0630 [facility] Last Admin: 06/13/17 06:35 Dose: 100 mcg Losartan Potassium (Cozaar) 25 mg PO DAILY [facility] Last Admin: 06/13/17 09:09 Dose: Not Given Magnesium Oxide (Mag-Ox) 400 mg PO DAILY [facility] Last Admin: 06/13/17 09:07 Dose: 400 mg Metoprolol Tartrate (Lopressor) 25 mg PO Q12 [facility] Last Admin: 06/13/17 09:07 Dose: Not Given Naproxen (Naprosyn Tab) 250 mg PO BID [facility] Last Admin: 06/13/17 16:35 Dose: 250 mg Pantoprazole Sodium (Protonix Ec Tab) 40 mg PO DAILY [facility] Last Admin: 06/13/17 09:06 Dose: 40 mg Potassium Chloride (K-Dur 20 Meq Er Tab) 20 meq PO DAILY [facility] Last Admin: 06/13/17 09:07 Dose: 20 meq Rivastigmine (Exelon 9.5 Mg/24 Hr Patch) 1 patch TD DAILY [facility] Last Admin: 06/13/17 09:09 Dose: 1 patch Fluticasone/Salmeterol (Advair Diskus 250/50) 1 puff IH Q12 [facility] Last Admin: 06/13/17 09:06 Dose: 1 puff Sildenafil Citrate (Revatio) 20 mg PO TID [facility] Last Admin: 06/13/17 16:35 Dose: 20 mg Sitagliptin Phosphate (Januvia) 50 mg PO DAILY [facility] Last Admin: 06/13/17 09:19 Dose: 50 mg Sucralfate (Carafate Oral Susp) 1 gm PO BID [facility] Last Admin: 06/13/17 16:35 Dose: 1 gm Tolterodine Tartrate (Detrol) 2 mg PO BID [facility] Last Admin: 06/13/17 16:35 Dose: 2 mg Zolpidem Tartrate (Ambien) 5 mg PO HS [facility] Last Admin: 06/12/17 22:31 Dose: 5 mg Physical Exam - Constitutional Appears: Well, Non-toxic, No Acute Distress - Extremities Exam Additional comments: VASC: DP and PT pulses palpable 2/4 b/l. CFT <3 seconds to all digits b/l. Temperature gradient warm to warm. Perimalleolar edema noted. NEURO: Gross sensation diminished bilaterally. DERM: Nails 1-5 b/l are thickened, elongated, and dystrophic with the presence of subungual debris. Nail 1 of left foot appears to be incurvated at medial border. Skin appears diffusely dry. No open lesions noted. ORTHO: Tenderness on palpation of nails 1-5 b/l. Pes planus deformity noted b/l. - Neurological Exam Neurological exam: Alert - Psychiatric Exam Psychiatric exam: Normal Affect, Normal Mood Results - Vital Signs Recent Vital Signs: Last Vital Signs Temp 97.0 F L 06/13/17 16:10 Pulse 79 06/13/17 16:10 Resp 20 06/13/17 16:10 BP 106/59 L 06/13/17 16:10 Pulse Ox 96 06/13/17 16:10 - Labs Labs: Laboratory Results - last 24 hr 06/12/17 06/13/17 06/13/17 20:33 05:14 11:00 POC Glucose (mg/dL) 104 100 194 H 06/13/17 16:30 POC Glucose (mg/dL) 140 H Assessment & Plan - Assessment and Plan (Free Text) Assessment: 81 year old female patient with onychomycosis and onychocryptosis left hallux Plan: Patient seen and evaluated Discussed with attending, Dr. Beth Nails 1-5 b/l debrided without incident Stable per podiatry standpoint Thank you for the consult, please reconsult as needed Podiatry to sign off at this time.
[2017-06-14] MEDS: Levothyroxine 100 MCG TAB PO SCH (06:34)
[2017-06-14] MEDS: Amylase/Lipase/Protease 5,000 Units ECC PO SCH ×2 (08:16→16:33)
[2017-06-14] MEDS: Fluticasone-Salmeterol 250-50mcg Diskus IH SCH ×2 (09:20→21:32)
[2017-06-14] MEDS: Sucralfate 1 gm/10 ml Oral Susp UD PO SCH ×2 (09:21→16:32)
[2017-06-14] MEDS: Potassium Chloride 20 mEq ER Tab PO SCH (09:22)
[2017-06-14] MEDS: Magnesium Oxide 400 mg Tab UD PO SCH (09:23)
[2017-06-14] MEDS: Pantoprazole 40 mg EC Tab PO SCH (09:24)
[2017-06-14] MEDS: Sildenafil 20 MG TAB PO SCH ×3 (09:24→16:34)
--- NOTE | 2017-06-14 16:06 | RAD ---
HISTORY: cxr COMPARISON: No prior. TECHNIQUE: Chest PA and lateral FINDINGS: LUNGS: Low-normal lung volumes. No consolidation. PLEURA: No significant pleural effusion identified. No pneumothorax apparent. CARDIOVASCULAR: Mild cardiomegaly. Perihilar bronchovascular markings/chronic interstitial lung markings -probably top-normal. OSSEOUS STRUCTURES: Diffuse thoracic spondylosis VISUALIZED UPPER ABDOMEN: Cholecystectomy clips OTHER FINDINGS: None. IMPRESSION: Mild cardiomegaly - probable top-normal bronchovascular markings
[2017-06-15] MEDS: Levothyroxine 100 MCG TAB PO SCH (06:14)
[2017-06-15] MEDS: Amylase/Lipase/Protease 5,000 Units ECC PO SCH ×2 (09:15→16:58)
[2017-06-15] MEDS: Fluticasone-Salmeterol 250-50mcg Diskus IH SCH (09:15)
[2017-06-15] MEDS: Sildenafil 20 MG TAB PO SCH ×3 (09:17→16:59)
[2017-06-15] MEDS: Sucralfate 1 gm/10 ml Oral Susp UD PO SCH ×2 (09:17→16:58)
[2017-06-15] MEDS: Potassium Chloride 20 mEq ER Tab PO SCH (09:18)
[2017-06-15] MEDS: Magnesium Oxide 400 mg Tab UD PO SCH (09:19)
[2017-06-15] MEDS: Pantoprazole 40 mg EC Tab PO SCH (09:19)
--- NOTE | 2017-06-15 10:31 | PN ---
DATE: 06/15/2017 SUBJECTIVE: The patient is seen and examined. Interim events noted. The patient remains in Transitional Care Unit. Feels okay. No specific complaint. No chest pain or shortness of breath. PHYSICAL EXAMINATION GENERAL: The patient is in no acute distress. VITAL SIGNS: Stable. HEART: S1 and S2, normal and regular. LUNGS: Good bilateral air exchange. ABDOMEN: Soft, nontender. EXTREMITIES: No edema. No calf swelling. No tenderness. No acute ischemia. CENTRAL NERVOUS SYSTEM: Essentially unchanged. DIAGNOSTIC DATA: Available diagnostic data reviewed. Chest x-ray is acceptable. ASSESSMENT AND PLAN: Overall, the patient is clinically stable. Plan as ordered. Richard Moran MD
[2017-06-15 11:50] LABS: HEMOGLOBIN 14.2 g/dL (12.0-16.0); MEAN CELL VOLUME 90.1 fl (81.0-99.0); MEAN CORPUSCULAR HEMOGLOBIN 29.4 pg (27.0-31.0); MEAN CORPUSCULAR HGB CONC 32.6 g/dL (33.0-37.0); RBC 4.82 Mil/uL (3.80-5.20); RED CELL DISTRIBUTION WIDTH 13.6 % (11.5-14.5); WHITE BLOOD COUNT 5.3 K/uL (4.8-10.8)
[2017-06-15 12:09] LABS: ALB/GLOB RATIO 1.3 (1.0-2.1); ALBUMIN 3.8 g/dL (3.5-5.0); CALCIUM 9.4 mg/dL (8.4-10.2)
[2017-06-16] MEDS: Levothyroxine 100 MCG TAB PO SCH (06:38)
--- NOTE | 2017-06-16 08:29 | CP.PCM.PN ---
Subjective - Date & Time of Evaluation Date of Evaluation: 06/16/17 Time of Evaluation: 07:30 - Subjective Subjective: Patient seen and examined bedside with Dr Moran. Patient reports feeling well. She denies SOB,chest pain, fever, leg swelling. patient improving with PT Objective - Vital Signs/Intake and Output Vital Signs (last 24 hours): Temp Pulse Resp BP Pulse Ox 98.5 F 91 H 20 95/52 L 98 06/16/17 08:14 06/16/17 08:14 06/16/17 08:14 06/16/17 08:14 06/16/17 08:14 - Medications Medications: Current Medications Albuterol (Ventolin Hfa 90 Mcg/Actuation (8 G)) 1 puff INH Q6 PRN PRN Reason: sob Amylase (Pancrease [id number] [id number] U) 10,000 unit PO BIDWM [facility] Last Admin: 06/15/17 16:58 Dose: 10,000 unit Apixaban (Eliquis) 2.5 mg PO BID [facility] PRN Reason: Protocol Last Admin: 06/15/17 16:58 Dose: 2.5 mg Aspirin (Ecotrin) 81 mg PO DAILY [facility] Last Admin: 06/15/17 09:17 Dose: 81 mg Atorvastatin Calcium (Lipitor) 10 mg PO DAILY [facility] Last Admin: 06/15/17 09:19 Dose: Not Given Docusate Sodium (Colace) 200 mg PO HS [facility] Last Admin: 06/15/17 21:52 Dose: 200 mg Donepezil HCl (Aricept) 5 mg PO DAILY [facility] Last Admin: 06/15/17 09:17 Dose: 5 mg Furosemide (Lasix) 40 mg PO Q12 [facility] Last Admin: 06/15/17 21:57 Dose: Not Given Gabapentin (Neurontin) 300 mg PO TID [facility] Last Admin: 06/15/17 16:59 Dose: 300 mg Home Med (Lipase/Protease/Amylase [Zenpep Dr 3,000 Units Capsule]) 2 cap PO BID [facility] Last Admin: 06/10/17 18:05 Dose: Not Given Levothyroxine Sodium (Synthroid) 100 mcg PO DAILY@0630 [facility] Last Admin: 06/16/17 06:38 Dose: 100 mcg Losartan Potassium (Cozaar) 25 mg PO DAILY [facility] Last Admin: 06/15/17 09:18 Dose: 25 mg Magnesium Oxide (Mag-Ox) 400 mg PO DAILY [facility] Last Admin: 06/15/17 09:19 Dose: 400 mg Metoprolol Tartrate (Lopressor) 25 mg PO Q12 [facility] Last Admin: 06/15/17 21:57 Dose: Not Given Naproxen (Naprosyn Tab) 250 mg PO BID [facility] Last Admin: 06/15/17 16:58 Dose: 250 mg Pantoprazole Sodium (Protonix Ec Tab) 40 mg PO DAILY [facility] Last Admin: 06/15/17 09:19 Dose: 40 mg Potassium Chloride (K-Dur 20 Meq Er Tab) 20 meq PO DAILY [facility] Last Admin: 06/15/17 09:18 Dose: 20 meq Rivastigmine (Exelon 9.5 Mg/24 Hr Patch) 1 patch TD DAILY [facility] Last Admin: 06/15/17 09:18 Dose: 1 patch Sildenafil Citrate (Revatio) 20 mg PO TID [facility] Last Admin: 06/15/17 16:59 Dose: 20 mg Sitagliptin Phosphate (Januvia) 50 mg PO DAILY [facility] Last Admin: 06/15/17 09:18 Dose: 50 mg Sucralfate (Carafate Oral Susp) 1 gm PO BID [facility] Last Admin: 06/15/17 16:58 Dose: 1 gm Tolterodine Tartrate (Detrol) 2 mg PO BID [facility] Last Admin: 06/15/17 16:58 Dose: 2 mg Zolpidem Tartrate (Ambien) 5 mg PO HS PRN PRN Reason: for insomnia Last Admin: 06/15/17 21:52 Dose: 5 mg - Labs Labs: 06/15/17 11:33 06/15/17 11:33 - Constitutional Appears: No Acute Distress - Head Exam Head Exam: ATRAUMATIC, NORMOCEPHALIC - Eye Exam Eye Exam: Normal appearance - ENT Exam ENT Exam: Mucous Membranes Moist - Respiratory Exam Respiratory Exam: Clear to Ausculation Bilateral. absent: Rales, Wheezes - Cardiovascular Exam Cardiovascular Exam: Irregular Rhythm, +S1, +S2 - GI/Abdominal Exam GI & Abdominal Exam: Soft, Normal Bowel Sounds. absent: Tenderness - Extremities Exam Extremities Exam: Normal Inspection. absent: Pedal Edema - Neurological Exam Neurological Exam: Alert, Awake, Oriented x3 - Psychiatric Exam Psychiatric exam: Normal Affect, Normal Mood - Skin Skin Exam: Intact Assessment and Plan - Assessment and Plan (Free Text) Plan: 81 yo, f, PMx/o CHF, COPD, morbid obesity, A fib, DM, HTN admitted to TCU to c/ w rehabilitation for CHF 1) Diastolic CHF exacerbation -controlled -cardiac consult appreciated: 2) A fib -[employer] consult appreciated: on Digoxin . Continue Lopressor 25 mg po BID -eliquis 2.5 mg po bid 3) COPD -Ventolin 4) DM Continue januvia Accucheck ACHS 5) DVT Prophylaxis -Eliquis
[2017-06-16] MEDS: Sucralfate 1 gm/10 ml Oral Susp UD PO SCH ×2 (09:35→16:55)
[2017-06-16] MEDS: Potassium Chloride 20 mEq ER Tab PO SCH (09:39)
[2017-06-16] MEDS: Magnesium Oxide 400 mg Tab UD PO SCH (09:41)
[2017-06-16] MEDS: Pantoprazole 40 mg EC Tab PO SCH (09:42)
[2017-06-16] MEDS: Amylase/Lipase/Protease 5,000 Units ECC PO SCH ×2 (09:42→17:14)
[2017-06-16] MEDS: Sildenafil 20 MG TAB PO SCH ×3 (09:42→17:15)
--- NOTE | 2017-06-16 11:07 | PN ---
DATE: 06/14/2017 SUBJECTIVE: Patient is seen and examined. Interim events noted. Consults noted and appreciated. Podiatry followup and intervention noted and appreciated. The patient remains in Transitional Care Unit, feels much better. No complaints of constipation. No chest pain. No shortness of breath. The patient was ambulatory yesterday very well. PHYSICAL EXAMINATION: GENERAL: Patient is in no acute distress. VITAL SIGNS: Stable. No orthostatic changes. HEART: S1 and S2 normal and regular. LUNGS: Good bilateral air exchange. ABDOMEN: Soft, nontender. EXTREMITIES: No edema. No calf swelling. No tenderness. No acute ischemia. CENTRAL NERVOUS SYSTEM: Essentially unchanged. DIAGNOSTIC DATA: Available diagnostic data reviewed. ASSESSMENT AND PLAN: Overall, the patient's general medical condition is stable. Plan as ordered. Richard Moran MD
[2017-06-17] MEDS: Levothyroxine 100 MCG TAB PO SCH (06:36)
[2017-06-17] MEDS: Sucralfate 1 gm/10 ml Oral Susp UD PO SCH ×2 (08:56→16:29)
[2017-06-17] MEDS: Amylase/Lipase/Protease 5,000 Units ECC PO SCH ×2 (08:56→16:29)
[2017-06-17] MEDS: Potassium Chloride 20 mEq ER Tab PO SCH (08:58)
[2017-06-17] MEDS: Magnesium Oxide 400 mg Tab UD PO SCH (08:59)
[2017-06-17] MEDS: Pantoprazole 40 mg EC Tab PO SCH (08:59)
[2017-06-17] MEDS: Sildenafil 20 MG TAB PO SCH ×3 (08:59→16:30)
--- NOTE | 2017-06-17 11:30 | PN ---
DATE: 06/17/2017 SUBJECTIVE: Patient seen and examined. Interim events noted. Patient remains in Transitional Care Unit, feels okay. Denies any specific complaints of generalized weakness. PHYSICAL EXAMINATION: GENERAL: The patient is in no acute distress. VITAL SIGNS: Stable. Physical examination is essentially unchanged. LABORATORY DATA: Available diagnostic data reviewed. ASSESSMENT AND PLAN: Overall, the patient's general medical condition is slowly improving. Plan as ordered. Richard Moran MD
[2017-06-18] MEDS: Levothyroxine 100 MCG TAB PO SCH (06:13)
[2017-06-18] MEDS: Sildenafil 20 MG TAB PO SCH ×3 (09:49→16:37)
[2017-06-18] MEDS: Amylase/Lipase/Protease 5,000 Units ECC PO SCH ×2 (09:50→16:40)
[2017-06-18] MEDS: Sucralfate 1 gm/10 ml Oral Susp UD PO SCH ×2 (09:51→16:38)
[2017-06-18] MEDS: Pantoprazole 40 mg EC Tab PO SCH (09:52)
[2017-06-18] MEDS: Potassium Chloride 20 mEq ER Tab PO SCH (09:52)
[2017-06-18] MEDS: Magnesium Oxide 400 mg Tab UD PO SCH (09:53)
[2017-06-19] MEDS: Levothyroxine 100 MCG TAB PO SCH (06:34)
[2017-06-19] MEDS: Sucralfate 1 gm/10 ml Oral Susp UD PO SCH ×2 (09:05→17:00)
[2017-06-19] MEDS: Potassium Chloride 20 mEq ER Tab PO SCH (09:07)
[2017-06-19] MEDS: Magnesium Oxide 400 mg Tab UD PO SCH (09:08)
[2017-06-19] MEDS: Sildenafil 20 MG TAB PO SCH ×3 (09:09→17:00)
[2017-06-19] MEDS: Amylase/Lipase/Protease 5,000 Units ECC PO SCH ×2 (09:09→17:00)
[2017-06-19] MEDS: Pantoprazole 40 mg EC Tab PO SCH (09:09)
--- NOTE | 2017-06-19 09:55 | PN ---
DATE: 06/19/2017 SUBJECTIVE: Patient seen and examined. Interim events noted. Patient remains in regular medical floor, Transitional Care Unit. Feels better. No chest pain. No shortness of breath. Complains of generalized weakness, but is improving and able to ambulate much better. PHYSICAL EXAMINATION: GENERAL: Patient is in no acute distress. VITAL SIGNS: Stable. Blood pressure is 101/52. HEART: S1 and S2, normal and regular. LUNGS: Good bilateral air exchange. ABDOMEN: Soft, nontender. EXTREMITIES: No calf swelling. No tenderness. No acute ischemia. CENTRAL NERVOUS SYSTEM: Essentially unchanged. DIAGNOSTIC DATA: Available diagnostic data reviewed. Accu-Cheks are acceptable. ASSESSMENT AND PLAN: Overall, patient's general medical condition is slowly improving. Plan as ordered. Richard Moran MD
[2017-06-19 16:52] VITALS: RESP 20
[2017-06-20] MEDS: Levothyroxine 100 MCG TAB PO SCH (06:32)
[2017-06-20 07:52] VITALS: BP 95/56; PULSE 92; TEMP 98.2; O2SAT 99
[2017-06-20] MEDS: Sucralfate 1 gm/10 ml Oral Susp UD PO SCH (08:43)
[2017-06-20] MEDS: Amylase/Lipase/Protease 5,000 Units ECC PO SCH (08:43)
[2017-06-20] MEDS: Pantoprazole 40 mg EC Tab PO SCH (08:49)
[2017-06-20] MEDS: Potassium Chloride 20 mEq ER Tab PO SCH (08:49)
[2017-06-20] MEDS: Magnesium Oxide 400 mg Tab UD PO SCH (08:49)
[2017-06-20] MEDS: Sildenafil 20 MG TAB PO SCH ×2 (08:49→12:45)
--- NOTE | 2017-06-20 10:01 | PN ---
DATE: 06/18/2017 SUBJECTIVE: The patient is seen and examined. Interim events noted. The patient remains in regular medical floor Transitional Care Unit. Feels okay. No new complaint of chest pain or shortness of breath. PHYSICAL EXAMINATION: GENERAL: The patient is in no acute distress. VITAL SIGNS: Stable. Blood pressure is on lower side, but no sign of other hypoperfusion. HEART: S1 and S2, normal and regular. LUNGS: Good bilateral air exchange. ABDOMEN: Soft, nontender. EXTREMITIES: No calf swelling. No tenderness. No acute ischemia. CENTRAL NERVOUS SYSTEM: Essentially unchanged. DIAGNOSTIC DATA: Available diagnostic data reviewed. ASSESSMENT AND PLAN: Overall, the patient is slowly improving. Plan as ordered. Richard Moran MD
--- NOTE | 2017-06-20 10:21 | CP.PCM.DIS ---
Provider - Provider Date of Admission: 06/09/17 22:10 Attending physician: Richard Moran MD Primary care physician: Dr. Higgins Consults: Dr. Beth-podiatry Time Spent in preparation of Discharge (in minutes): 30 Diagnosis - Discharge Diagnosis (1) Acute exacerbation of CHF (congestive heart failure) Status: Resolved Priority: Low Hospital Course - Lab Results Lab Results: Most Recent Lab Values WBC 5.3 K/uL (4.8-10.8) 06/15/17 11:33 RBC 4.82 Mil/uL (3.80-5.20) 06/15/17 11:33 Hgb 14.2 g/dL (12.0-16.0) 06/15/17 11:33 Hct 43.4 % (34.0-47.0) 06/15/17 11:33 MCV 90.1 fl (81.0-99.0) 06/15/17 11:33 MCH 29.4 pg (27.0-31.0) 06/15/17 11:33 MCHC 32.6 g/dL (33.0-37.0) L 06/15/17 11:33 RDW 13.6 % (11.5-14.5) 06/15/17 11:33 Plt Count 185 K/uL (130-400) 06/15/17 11:33 Sodium 135 mmol/l (132-148) 06/15/17 11:33 Potassium 4.4 MMOL/L (3.6-5.0) 06/15/17 11:33 Chloride 89 mmol/L (98-107) L 06/15/17 11:33 Carbon Dioxide 41 mmol/L (22-30) H* 06/15/17 11:33 Anion Gap 9 (10-20) L 06/15/17 11:33 BUN 30 mg/dl (7-17) H 06/15/17 11:33 Creatinine 1.1 mg/dl (0.7-1.2) 06/15/17 11:33 Est GFR ( Amer) 58 06/15/17 11:33 Est GFR (Non-Af Amer) 48 06/15/17 11:33 POC Glucose (mg/dL) 101 mg/dL (65-110) 06/20/17 06:34 Random Glucose 95 mg/dL (65-105) 06/15/17 11:33 Calcium 9.4 mg/dL (8.4-10.2) 06/15/17 11:33 Total Bilirubin 0.3 mg/dl (0.2-1.3) 06/15/17 11:33 AST 30 U/L (14-36) 06/15/17 11:33 ALT 38 U/L (9-52) 06/15/17 11:33 Alkaline Phosphatase 87 U/L (38-126) 06/15/17 11:33 Total Protein 6.7 G/DL (6.3-8.2) 06/15/17 11:33 Albumin 3.8 g/dL (3.5-5.0) 06/15/17 11:33 Globulin 2.9 gm/dL (2.2-3.9) 06/15/17 11:33 Albumin/Globulin Ratio 1.3 (1.0-2.1) 06/15/17 11:33 - Hospital Course Hospital Course: 81 yr old F admitted to TCU for deconditioning s/p acute CHF exacerbation. Patient tolerated physical therapy well, improved and medically stable for discharge home. Instructions given to followup with her primary care doctor within 1 week of discharge. - Date & Time of H&P Date of H&P: 06/10/17 Time of H&P: 08:31 Discharge Exam - Head Exam Head Exam: ATRAUMATIC, NORMOCEPHALIC - ENT Exam ENT Exam: Mucous Membranes Dry - Neck Exam Neck exam: Full Rom - Respiratory Exam Respiratory Exam: Clear to PA & Lateral, NORMAL BREATHING PATTERN. absent: Respiratory Distress - Cardiovascular Exam Cardiovascular Exam: REGULAR RHYTHM, +S1, +S2 - GI/Abdominal Exam GI & Abdominal Exam: Normal Bowel Sounds, Soft (obese). absent: Guarding, Tenderness - Extremities Exam Extremities exam: full ROM, pedal edema (+1 bilaterally) - Back Exam Back exam: absent: CVA tenderness (L), CVA tenderness (R) - Neurological Exam Neurological exam: Alert, Oriented x3 - Psychiatric Exam Psychiatric exam: Normal Affect, Normal Mood - Skin Skin Exam: Dry, Intact, Normal Color, Warm Discharge Plan - Discharge Medications Prescriptions: Albuterol HFA [Ventolin HFA 90 mcg/actuation (8 g)] 2 in INH Q6 PRN #1 inhaler PRN Reason: sob Apixaban [Eliquis] 2.5 mg PO BID #60 tab Aspirin [Ecotrin] 81 mg PO DAILY #30 tabec Atorvastatin [Lipitor] 10 mg PO DAILY #30 tab Docusate [Colace] 200 mg PO HS #60 cap Donepezil HCl [Aricept Odt] 5 mg PO DAILY #30 odt Esomeprazole Magnesium [Nexium] 40 mg PO DAILY #30 ecc Fluticasone/Salmeterol 250/50 [Advair Diskus 250/50] 1 inh INH Q12 #1 dsk Levothyroxine [Synthroid] 100 mcg PO DAILY #30 tab Lipase/Protease/Amylase [Zenpep Dr 3,000 Units Capsule] 2 cap PO BID #120 capsule. Losartan/Hydrochlorothiazide [Losartan-Hctz 50-12.5 mg Tab] 1 tab PO DAILY #30 tablet Magnesium Oxide [Magox 400] 400 mg PO DAILY #30 tablet Meloxicam [Mobic] 7.5 mg PO DAILY #30 tab Metoprolol Tartrate [Lopressor] 25 mg PO Q12 #60 tab Rivastigmine 9.5 mg/24 hr [Exelon 9.5 mg/24 hr Patch] 1 patch TD DAILY #30 patch Sildenafil [Revatio] 20 mg PO TID #90 tab SITagliptin [Januvia] 50 mg PO DAILY #30 tab Sucralfate [Carafate Oral Susp] 1 gm PO BID #1 udc Tolterodine [Detrol LA] 4 mg PO DAILY #30 cer - Follow Up Plan Condition: GOOD Disposition: HOME/ ROUTINE Instructions: Heart Failure (GEN) Additional Instructions: Follow up with your primary care provider-Dr. Higgins within 1 week. Take all medications as prescribed. Referrals: Christy Higgins MD [Family Provider] - Clinical Quality Measures - CQM - VTE Did patient receive overlap therapy during hosptialization?: Yes If yes, what was given to the patient?: Renetta Is patient being discharged on overlap therapy?: Yes If yes, what prescription has been given to the patient?: Camden Jackson - CQM - Heart Failure Ejection Fraction: 40 % or Greater Left Ventricular Function to be assessed after discharge: No JORGE Inhibitor Prescribed: No Contraindication/Reason for not providing: pt on ARB Beta-Lima Prescribed: Metoprolol Succinate Angiotensin II Receptor Lima Prescribed: Yes AnticoagulationTherapy for Atrial Fibrillation/Atrialflutter: Yes Aldosterone Antagonist Prescribed: No Contraindication/Reason for not providing: not required Hydralazine Nitrate Prescribed: No Contraindication/Reason for not providing: not required Implantable Cardioverter Defibrillator Therapy: No Contraindication/Reason for not providing: not required Cardiac Resynchronization Therapy Prescribed: No Contraindication/Reason for not providing: not required Will be discharged to: Home Follow Up Date (must be within 7 days from discharge): 06/27/17 (Dr. Higgins) Follow Up Time: 09:00 - Date & Time of Discharge Summary Date of Discharge Summary: 06/20/17 Time of Discharge Summary: 11:08
--- NOTE | 2017-06-20 12:09 | CP.PCM.CON ---
History of Present Illness - History of Present Illness History of Present Illness: Consultation for CHF , diastolic CHF, pulmonary HTN HPI: Review of Systems - Review of Systems All systems: reviewed and no additional remarkable complaints except - Constitutional Constitutional: As Per HPI - EENT Eyes: As Per HPI. absent: Blind Spots, Blurred Vision, Change in Vision, Decreased Night Vision, Diplopia, Discharge, Dry Eye, Exophthalmos, Floaters, Irritation, Itchy Eyes, Loss of Peripheral Vision, Pain, Photophobia, Requires Corrective Lenses, Sees Flashes, Spots in Vision, Tunnel Vision, Other Visual Disturbances, Loss of Vision, Other Ears: As Per HPI. absent: Decreased Hearing, Ear Discharge, Ear Pain, Tinnitus , Abnormal Hearing, Disequilibrium, Dizziness, Other Nose/Mouth/Throat: As Per HPI. absent: Epistaxis, Nasal Congestion, Nasal Discharge, Nasal Obstruction, Nasal Trauma, Nose Pain, Post Nasal Drip, Sinus Pain, Sinus Pressure, Bleeding Gums, Change in Voice, Dental Pain, Dry Mouth, Dysphagia, Halitosis, Hoarsness, Lip Swelling, Mouth Lesions, Mouth Pain, Odynophagia, Sore Throat, Throat Swelling, Tongue Swelling, Facial Pain, Neck Pain, Neck Mass, Other - Breasts Breasts: As Per HPI. absent: Change in Shape, Mass, Pain, Nipple Discharge, Nipple Inversion, Skin Changes, Swelling, Other - Cardiovascular Cardiovascular: As Per HPI. absent: Acrocyanosis, Chest Pain, Chest Pain at Rest, Chest Pain with Activity, Claudication, Diaphoresis, Dyspnea, Dyspnea on Exertion, Edema, Irregular Heart Rhythm, Pain Radiating to Arm/Neck/Jaw, Leg Edema, Leg Ulcers, Lightheadedness, Orthopnea, Palpitations, Paroxysmal Nocturnal Dyspnea, Pedal Edema, Radiating Pain, Rapid Heart Rate, Slow Heart Rate, Syncope, Other - Respiratory Respiratory: As Per HPI. absent: Cough, Dyspnea, Hemoptysis, Dyspnea on Exertion, Wheezing, Snoring, Stridor, Pain on Inspiration, Chest Congestion, Excessive Mucous Production, Change in Mucous Color, Pain with Coughing, Other - Gastrointestinal Gastrointestinal: As Per HPI. absent: Abdominal Pain, Belching, Bloating, Change in Bowel Habits, Change in Stool Character, Coffee Ground Emesis, Constipation, Cramping, Diarrhea, Dyspepsia, Dysphagia, Early Satiety, Excessive Flatus, Fecal Incontinence, Heartburn, Hematemesis, Hematochezia, Loose Stools, Melena, Nausea, Odynophagia, Temesmus, Vomiting, Other - Genitourinary Genitourinary: As Per HPI. absent: Change in Urinary Stream, Difficulty Urinating, Dysuria, Flank Pain, Hematuria, Pyuria, Nocturia, Urinary Incontinence, Urinary Frequency, Urinary Hesitance, Urinary Urgency, Voiding Freq/Small Amts, Freq UTI, Hx Renal/Bladder Calculi, Hx /Renal Surgery, Bladder Distension, Other - Reproductive: Female Reproductive:Female: As Per HPI - Menstruation Menstruation: As Per HPI - Musculoskeletal Musculoskeletal: As Per HPI. absent: Abnormal Gait, Arthralgias, Atrophy, Back Pain, Deformity, Joint Swelling, Limited Range of Motion, Loss of Height, Muscle Cramps, Muscle Weakness, Myalgias, Neck Pain, Numbness, Radiating Pain into Limb, Stiffness, Tingling, Other - Integumentary Integumentary: As Per HPI. absent: Acne, Alopecia, Bleeding Lesions, Change in Hair, Change in Nails, Change in Pigmentation, Changing Lesions, Dry Skin, Erythema, Furuncle, Hirsutism, Lesions, New Lesions, Non-Healing Lesions, Photosensitivity, Pruritus, Rash, Skin Pain, Skin Ulcer, Sores, Striae, Swelling , Unusual Bruising, Wounds, Jaundice, Other - Neurological Neurological: As Per HPI. absent: Abnormal Gait, Abnormal Hearing, Abnormal Movements, Abnormal Speech, Behavioral Changes, Burning Sensations, Confusion, Convulsions, Disequilibrium, Dizziness, Numbness, Focal Weakness, Frequent Falls , Headaches, Lack of Coordination, Loss of Vision, Memory Loss, Paresthesias, Radicular Pain, Restless Legs, Sensory Deficit, Syncope, Tingling, Tremor, Vertigo, Weakness, Other Visual Disturbances, Other - Psychiatric Psychiatric: As Per HPI. absent: Abnormal Sleep Pattern, Anhedonia, Anxiety, Auditory Hallucinations, Behavioral Changes, Change in Appetite, Change in Libido, Confusion, Depression, Difficulty Concentrating, Hallucinations, Homicidal Ideation, Hopelessness, Irritability, Memory Loss, Mood Swings, Panic Attacks, Paranoia, Suicidal Ideation, Visual Hallucinations, Tactile Hallucinations, Other - Endocrine Endocrine: As Per HPI. absent: Change in Body Appearance, Change in Libido, Cold Intolorance, Deepening of Voice, Excessive Sweating, Fatigue, Flushing, Heat Intolorance, Increase in Ring/Shoe/Hat Size, Palpitations, Polydipsia, Polyphagia, Polyuria, Other - Hematologic/Lymphatic Hematologic: As Per HPI. absent: Easy Bleeding, Easy Bruising, Lymphadenopathy , Other Past Patient History - Infectious Disease Hx of Infectious Diseases: None - Past Medical History & Family History Past Medical History?: Yes - Past Social History Smoking Status: Never Smoked - CARDIAC Hx Atrial Fibrillation: Yes Hx Congestive Heart Failure: Yes Hx Hypercholesterolemia: Yes Hx Hypertension: Yes - PULMONARY Hx Chronic Obstructive Pulmonary Disease (COPD): Yes - NEUROLOGICAL Hx Neurological Disorder: Yes HX Cerebrovascular Accident: Yes - HEENT Hx HEENT Problems: Yes Hx Blind: Yes (Right eye) Hx Glaucoma: Yes Other/Comment: Hx [place]OSS with hearing aids - RENAL Hx Chronic Kidney Disease: No - ENDOCRINE/METABOLIC Hx Endocrine Disorders: Yes Hx Diabetes Mellitus Type 2: Yes Hx Hypothyroidism: Yes - HEMATOLOGICAL/ONCOLOGICAL Hx AIDS: No Hx Human Immunodeficiency Virus (HIV): No - INTEGUMENTARY Hx Dermatological Problems: No - MUSCULOSKELETAL/RHEUMATOLOGICAL Hx Falls: No - GASTROINTESTINAL Hx Gastrointestinal Disorders: Yes Hx Gastroesophageal Reflux: Yes (Peptic Ulcer disease) - GENITOURINARY/GYNECOLOGICAL Hx Genitourinary Disorders: Yes Hx Incontinence: Yes - PSYCHIATRIC Hx Substance Use: No - SURGICAL HISTORY Hx Appendectomy: Yes - ANESTHESIA Hx Anesthesia: Yes Hx Anesthesia Reactions: No Hx Malignant Hyperthermia: No Meds Home Medications: Home Medication List Medication Instructions Recorded Confirmed Type Albuterol HFA [Ventolin HFA 90 2 in INH Q6 PRN #1 inhaler 06/20/17 Rx mcg/actuation (8 g)] Apixaban [Eliquis] 2.5 mg PO BID #60 tab 06/20/17 Rx Aspirin [Ecotrin] 81 mg PO DAILY #30 tabec 06/20/17 Rx Atorvastatin [Lipitor] 10 mg PO DAILY #30 tab 06/20/17 Rx Digoxin 0.125 mg PO DAILY #30 solution 06/20/17 Rx Docusate [Colace] 200 mg PO HS #60 cap 06/20/17 Rx Donepezil HCl [Aricept Odt] 5 mg PO DAILY #30 odt 06/20/17 Rx Esomeprazole Magnesium [Nexium] 40 mg PO DAILY #30 ecc 06/20/17 Rx Fluticasone/Salmeterol 250/50 1 inh INH Q12 #1 dsk 06/20/17 Rx [Advair Diskus 250/50] Gabapentin 300 mg PO TID #90 capsule 06/20/17 Rx Levothyroxine [Synthroid] 100 mcg PO DAILY #30 tab 06/20/17 Rx Lipase/Protease/Amylase [Zenpep Dr 2 cap PO BID #120 capsule.dr 06/20/17 Rx 3,000 Units Capsule] Losartan/Hydrochlorothiazide 1 tab PO DAILY #30 tablet 06/20/17 Rx [Losartan-Hctz 50-12.5 mg Tab] Magnesium Oxide [Magox 400] 400 mg PO DAILY #30 tablet 06/20/17 Rx Meloxicam [Mobic] 7.5 mg PO DAILY #30 tab 06/20/17 Rx Metoprolol Tartrate [Lopressor] 25 mg PO Q12 #60 tab 06/20/17 Rx Rivastigmine 9.5 mg/24 hr [Exelon 1 patch TD DAILY #30 patch 06/20/17 Rx 9.5 mg/24 hr Patch] SITagliptin [Januvia] 50 mg PO DAILY #30 tab 06/20/17 Rx Sildenafil [Revatio] 20 mg PO TID #90 tab 06/20/17 Rx Sucralfate [Carafate Oral Susp] 1 gm PO BID #1 udc 06/20/17 Rx Tolterodine [Detrol LA] 4 mg PO DAILY #30 cer 06/20/17 Rx Allergies/Adverse Reactions: Allergies Allergy/AdvReac Type Severity Reaction Status Date / Time No Known Allergies Allergy Verified 06/04/17 19:02 - Medications Medications: Current Medications Albuterol (Ventolin Hfa 90 Mcg/Actuation (8 G)) 1 puff INH Q6 PRN PRN Reason: sob Amylase (Pancrease 89923 [id number] U) 10,000 unit PO BIDWM [facility] Last Admin: 06/20/17 08:43 Dose: 10,000 unit Apixaban (Eliquis) 2.5 mg PO BID [facility] PRN Reason: Protocol Last Admin: 06/20/17 08:48 Dose: 2.5 mg Aspirin (Ecotrin) 81 mg PO DAILY [facility] Last Admin: 06/20/17 08:48 Dose: 81 mg Atorvastatin Calcium (Lipitor) 10 mg PO DAILY@2100 [facility] Last Admin: 06/19/17 22:23 Dose: 10 mg Docusate Sodium (Colace) 200 mg PO HS [facility] Last Admin: 06/19/17 22:22 Dose: 200 mg Donepezil HCl (Aricept) 5 mg PO DAILY [facility] Last Admin: 06/20/17 08:47 Dose: 5 mg Furosemide (Lasix) 40 mg PO Q12 [facility] Last Admin: 06/20/17 08:49 Dose: Not Given Gabapentin (Neurontin) 300 mg PO TID [facility] Last Admin: 06/20/17 08:44 Dose: 300 mg Home Med (Lipase/Protease/Amylase [Zenpep Dr 3,000 Units Capsule]) 2 cap PO BID [facility] Last Admin: 06/10/17 18:05 Dose: Not Given Levothyroxine Sodium (Synthroid) 100 mcg PO DAILY@0630 [facility] Last Admin: 06/20/17 06:32 Dose: 100 mcg Losartan Potassium (Cozaar) 25 mg PO DAILY [facility] Last Admin: 06/20/17 08:48 Dose: Not Given Magnesium Oxide (Mag-Ox) 400 mg PO DAILY [facility] Last Admin: 06/20/17 08:49 Dose: 400 mg Metoprolol Tartrate (Lopressor) 25 mg PO Q12 [facility] Last Admin: 06/20/17 08:49 Dose: Not Given Naproxen (Naprosyn Tab) 250 mg PO BID [facility] Last Admin: 06/20/17 08:49 Dose: 250 mg Pantoprazole Sodium (Protonix Ec Tab) 40 mg PO DAILY [facility] Last Admin: 06/20/17 08:49 Dose: 40 mg Potassium Chloride (K-Dur 20 Meq Er Tab) 20 meq PO DAILY [facility] Last Admin: 06/20/17 08:49 Dose: 20 meq Rivastigmine (Exelon 9.5 Mg/24 Hr Patch) 1 patch TD DAILY [facility] Last Admin: 06/20/17 08:48 Dose: 1 patch Sildenafil Citrate (Revatio) 20 mg PO TID [facility] Last Admin: 06/20/17 08:49 Dose: 20 mg Sitagliptin Phosphate (Januvia) 50 mg PO DAILY [facility] Last Admin: 06/20/17 08:48 Dose: 50 mg Sucralfate (Carafate Oral Susp) 1 gm PO BID [facility] Last Admin: 06/20/17 08:43 Dose: 1 gm Tolterodine Tartrate (Detrol) 2 mg PO BID [facility] Last Admin: 06/20/17 08:48 Dose: 2 mg Zolpidem Tartrate (Ambien) 5 mg PO HS PRN PRN Reason: for insomnia Last Admin: 06/19/17 22:21 Dose: 5 mg Physical Exam - Constitutional Appears: Well - Head Exam Head Exam: ATRAUMATIC, NORMAL INSPECTION, NORMOCEPHALIC - Eye Exam Eye Exam: EOMI, Normal appearance, PERRL Pupil Exam: NORMAL ACCOMODATION, PERRL - ENT Exam ENT Exam: Mucous Membranes Moist, Normal Exam - Neck Exam Neck exam: Positive for: Normal Inspection - Respiratory Exam Respiratory Exam: Clear to Auscultation Bilateral, NORMAL BREATHING PATTERN - Cardiovascular Exam Cardiovascular Exam: Irregular Rhythm, +S1, +S2, Systolic Murmur - GI/Abdominal Exam GI & Abdominal Exam: Normal Bowel Sounds, Soft. absent: Tenderness - Extremities Exam Extremities exam: Positive for: normal inspection, pedal edema - Back Exam Back exam: NORMAL INSPECTION - Neurological Exam Neurological exam: Alert, CN II-XII Intact, Normal Gait, Oriented x3, Reflexes Normal - Psychiatric Exam Psychiatric exam: Normal Affect, Normal Mood - Skin Skin Exam: Dry, Intact, Normal Color, Warm Results - Vital Signs Recent Vital Signs: Last Vital Signs Temp 98.2 F 06/20/17 07:51 Pulse 92 H 06/20/17 07:51 Resp 20 06/20/17 07:51 BP 95/56 L 06/20/17 07:51 Pulse Ox 99 06/20/17 07:51 - Labs Result Diagrams: 06/15/17 11:33 06/15/17 11:33 Labs: Laboratory Results - last 24 hr 06/19/17 06/19/17 06/20/17 15:55 22:17 06:34 POC Glucose (mg/dL) 111 H 113 H 101 06/20/17 11:10 POC Glucose (mg/dL) 138 H Assessment & Plan (1) Afib Status: Acute (2) Pedal edema Status: Acute (3) Pulmonary HTN Status: Acute (4) Acute exacerbation of CHF (congestive heart failure) Status: Resolved Priority: Low
== END 2017-06-20 12:30 | disposition home or self-care (01) | DRG 293 ==
LOC: H.TCU 06-09 22:10
PROVIDERS: ADMIT Internal Medicine; ATTEND Internal Medicine
PROC: F08Z1FZ Dressing Techniques Treatment using Assistive, Adaptive, Supportive or Protective Equipment (ICD-10-PCS; principal; 2017-06-09)
PROC: F07Z9FZ Gait Training/Functional Ambulation Treatment using Assistive, Adaptive, Supportive or Protective Equipment (ICD-10-PCS; 2017-06-09)
PROC: F07L6FZ Therapeutic Exercise Treatment of Musculoskeletal System - Lower Back / Lower Extremity using Assistive, Adaptive, Supportive or Protective Equipment (ICD-10-PCS; 2017-06-09)
DX: I11.0 Hypertensive heart disease with heart failure (principal); I95.9 Hypotension, unspecified; I27.20 Pulmonary hypertension, unspecified; E11.40 Type 2 diabetes mellitus with diabetic neuropathy, unspecified; J44.9 Chronic obstructive pulmonary disease, unspecified; E66.01 Morbid (severe) obesity due to excess calories; I48.91 Unspecified atrial fibrillation; B35.1 Tinea unguium; L60.0 Ingrowing nail; R10.13 Epigastric pain; I50.32 Chronic diastolic (congestive) heart failure; Z68.38 Body mass index [BMI] 38.0-38.9, adult